=== PATIENT | male | born 1965 | race Caucasian/White ===

== ENCOUNTER 2025-01-29 09:09 | Emergency (ER) | payer OTHER, MEDICAID, SELFPAY ==
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
[2025-01-29 09:08] VITALS: BP 155/95; PULSE 93; RESP 18; TEMP 36.5; O2SAT 98
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
[2025-01-29] MEDS: ACETAMINOPHEN 500 MG TABLET 1000 MG PO (10:15)
[2025-01-29] MEDS: CYCLOBENZAPRINE HCL 5 MG TABLET PO (10:15)
--- OUTSIDE RECORDS SUMMARY | 2025-01-29 10:23 | XMS_ITS ---
Author Organization [facility] Address [address] [place] [id number] Care Team Providers Care Shirt Trimmer Name Role Phone Regis Watts MD Primary Care Provider Regis Jamison Unavailable [phone] REASON FOR VISIT 3 month f/u Social History Sex Assigned At : Social History Observation Description Sex Assigned At Male Encounters Encounter [facility] [address] [address] 01/03/[facility]25 Regis Watts Plan Of Treatment Next Appt Details Provider Name:Keyur Ureña lisa, 03/18/2025 03:30:00 PM, [address] [place] [address], [id number], Progress Notes * Boby CONIT ADOB:[birth year] (59 yo M)Acc No.[id number]:01/03/2025 Progress Notes Patient: Boby LARSON Provider: Forrest Watts MD, FACP, AAHIVS :1965 A ge:59 Y S ex:Male Date:01/03/2025 Address:[address] [place] [address], [address], [id number] Pcp:Regis Watts MD Subjective: * Chief Complaints: * 1 . 3 month f/u. * Active Problem List B20 Human immunodeficien cy virus [HIV] disease Modified On:06/12/2019 B36.9 Superficial mycosis, unspecified E78.4 Other hyperlipidemia Modified On:06/12/2019 J45.30 Mild persistent asth ma, uncomplicated Modified On:12/27/2019 N47.6 Balanoposthitis Modified On:05/12/2018 L71.9 Rosacea Modified On:05/12/2018 M25.519 Pain in joint, shoul pascale region Modified On:05/12/2018 R59.9 Enlarged lymph nodes Modified On:05/12/2018 B00.9 Herpes simplex witho ut mention of complication Modified On:05/12/2018 B36.9 Dermatomycosis, unsp ecified Modified On:05/12/2018 N48.6 Peyronie disease Modified On:12/27/2019W/U Status:confirmed E29.1 Hypogonadism in male Modified On:03/15/2023U Status:confirmed E78.5 Hyperlipidemia, unsp ecified hyperlipidemia type Modified On:12/31/2020U Status:confirmed N40.1 Benign non-nodular p rostatic hyperplasia with lower urinary tract symptoms Modified On:11/26/2022U Status:confirmed E55.9 Vitamin D deficiency Modified On:01/02/2023U Status:confirmed N52.02 Corporo-venous occlu sive erectile dysfunction Modified On:09/21/2023U Status:confirmed F34.1 Dysthymia Modified On:02/28/2024U Status:confirmed R20.2 Paresthesia of both hands Modified On:06/25/2024U Status:confirmed I73.00 Raynaud's disease wi thout gangrene Modified On:06/25/2024U Status:confirmed A49.02 MRSA infection Modified On:07/19/2024U Status:confirmed I10 Essential hypertensi on Modified On:07/19/2024U Status:confirmed G56.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 of hand, unspecified laterality Modified On:10/03/2024/U Status:confirmed E55.9 Hypovitaminosis D Modified On:11/08/2024/U Status:confirmed K65.9 Peritonitis Modified On:11/08/2024/U Status:confirmed E53.8 Vitamin B12 deficien cy Modified On:11/08/2024 Status:confirmed Z87.311 History of fragility fracture Modified On:11/08/2024 Status:confirmed B20 Human immunodeficien cy virus (HIV) disease Modified On:12/19/2024 Status:confirmed B00.9 Herpes simplex Modified On:12/19/2024 Status:confirmed E78.00 Hypercholesterolemia Modified On:12/19/2024 Status:confirmed K21.9 GERD without esophag itis Modified On:12/19/2024 Status:confirmed * Medical History: * Implants: Objective: * Vitals: Assessment: Plan: * Treatment: * Billing Information: * Visit Code: * Procedure Codes: Care Plan Details* * Electronic signature of Kyle Watts MD, FACP on 01/29/2025 at 10:23 AM CDT Sign off status: Pending * Provider: Forrest Watts MD, FACP, AAHIVS Date: 01/03/2025 Generated for Gurdeep fulton/Melissa/Hermanitting on: 01/29/2025 10:23 AM CDT
--- OUTSIDE RECORDS SUMMARY | 2025-01-29 10:24 | XMS_ITS | Clinical Summary ---
Author Organization [facility] Address [address] [place] [address] Care Team Providers Care Caregiver Assisted Living Name Role Phone Regis Watts MD Primary Care Provider Source Comments [facility],non-owned Affiliates and Associated Physician Practices is amultiple site organization consisting of ambulatory clinics and hospital sitesin [place], [place], [place] and [place]. This disclosure is being madepursuant to the Care Everywhere program and may not contain all information available regarding this patient. Last updated 18.[facility] Allergies Active Allergy Reactions Criticality Noted Date Comments Acetaminophen Unknown 07/13/2019 Codeine Unknown 07/13/2019 Ibuprofen Itching,Swelling 11/18/2020 Lips swell and itch Latex Rash Medium 06/28/2023 Meprobamate Unknown 06/21/2018 Misc Natural Products Other 06/28/2023 Nickel Itching,Rash,Unknown Medium 06/28/2023 Nsaids Swelling 02/14/2018 Silicone Itching,Rash Medium 06/28/2023 Medications * Be aware that medications may not be up to date on this document. Alwaysverify current medications with the patient. BIKTARVY 50-200-25 MG Take 1 (one) tablet by mouth once daily 9 Active cetirizine (ZYRTEC) 10 MG tabletIndicatio ns:Urticaria, idiopathic TAKE 2 TABLETS BY MOUTH TWICE DAILY 120 tablet 2 0 Active Additional Information Patient taking differently: 20 mg Oral 2 TIMES DAILY, TAKE 2 TABLETS BY MOUTH TWICE DAILY, Reported on 11/14/2024 desoximetasone (Topicort) 0.25 % ointmentIndicat ions:Allergic contact dermatitis due to other agents Apply to rash on trunk and extremities twice daily. 30 days supply. 100 g 2 3 Active triamcinolone acetonide (Kenalog) 0.1 % ointmentIndicat ions:Allergic contact dermatitis, unspecified trigger Apply to affected area on body BID. 90 day supply 240 g 1 3 Active dupilumab (Dupixent) 300 MG/2ML prefilled penIndications: Other atopic dermatitis Inject 2mL subcutaneous every 14 days 4 mL 11 4 Active escitalopram (Lexapro) 10 MG tablet Take 1 (one) tablet by mouth once daily 4 Active LORazepam (Ativan) 1 MG tablet Take 1 (one) tablet by mouth 3 times daily as needed 4 Active Multiple Vitamin (Daily-Ashley) TABS Take 1 tablet by mouth once daily 4 Active tadalafil (Cialis) 20 MG tablet Take 1 (one) tablet by mouth once daily as needed 4 Active albuterol HFA (Proventil; Ventolin; Proair) 108 (90 Base) MCG/ACT inhaler Inhale 2 (two) puffs by mouth every 4 hours 4 Active doxycycline hyclate (Vibramycin) 100 MG capsule Take 1 (one) capsule by mouth as directed 4 Active atorvastatin (Lipitor) 40 MG tablet Take 1 (one) tablet by mouth once daily 4 Active budesonide-form oterol (Symbicort) 160-4.5 MCG/ACT inhaler Inhale 2 (two) puffs by mouth 2 times daily Active hydrOXYzine HCl (Atarax) 25 MG tablet Take 1 (one) tablet by mouth as directed 3 Active pantoprazole EC (Protonix) 40 MG tablet Take 1 (one) tablet by mouth 2 times daily Active testosterone cypionate (Depo-Testoster one) 200 MG/ML injection Inject 1 mL into muscle as directed 4 Active valACYclovir (Valtrex) 1 GM tablet Take 1 (one) tablet by mouth once daily Active amLODIPine (Norvasc) 10 MG tablet Take 1 (one) tablet by mouth once daily 4 Active gabapentin (Neurontin) 300 MG capsule Take 2 (two) capsules by mouth 3 times daily 540 capsule 3 4 04/24/20 25 Active Active Problems Problem Noted Date Diagnosed Date Suicidal ideation 11/04/2024 Problem related to social environment, unspecifi ed 11/04/2024 Post traumatic stress disorder 11/04/2024 Closed displaced fracture of fifth metatarsal bone of left foot 10/31/2024 Asthma 07/11/2024 Facial cellulitis 07/11/2024 Anxiety 07/11/2024 Elevated troponin 03/15/2024 Chronic rhinitis 03/01/2024 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 03/01/2024 Vitamin D deficiency 03/01/2024 Mild intermittent asthma without complication Induratio penis plastica 03/01/2024 Exercise-induced bronchospasm 03/01/2024 Dysthymia 03/01/2024 Male hypogonadism 03/01/2024 Inguinal hernia without obstruction or gangrene 07/18/2023 Chronic GERD 06/27/2023 Lower urinary tract symptoms due to benign prostatic hyperplasia 06/27/2023 Dermatitis venenata 04/21/2021 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 Hand dermatitis 04/21/2021 Urinary tract infection, site not specified 03/2020 Dermatographism 02/06/2019 Idiopathic urticaria 09/01/2018 Other pruritus 08/08/2018 Asymptomatic human immunodef iciency virus (hiv) infection status 06/16/2018 Balanoposthitis 06/16/2018 Cholecystitis 06/16/2018 Elevated blood-pressure read ing without diagnosis of hypertension 06/16/2018 Giardiasis 06/16/2018 Herpes simplex virus (HSV) infection 06/16/2018 Hyperlipidemia 06/16/2018 Enlarged lymph nodes 06/16/2018 Rosacea 06/16/2018 Seasonal allergic rhinitis 06/16/2018 Pain in joint, shoulder region 06/16/2018 Unspecified sprain of unspec ified shoulder joint, initial encounter 06/16/2018 Testicular hypofunction 06/16/2018 Tinnitus 06/16/2018 Moderate persistent asthma without complication 06/16/2018 Resolved Problems Problem Noted Date Diagnosed Date Resolved Date Asthma with exacerbation 06/16/201807/2024 Encounters Date Type Department Care Team Description 12/19/2024 Telephone [facility] - General Surgery [address] [place] [phone] Viet Mallory DO Surgery Scheduling 12/14/2024 2:49 PM CDT - 12/14/2024 11:59 PM CDT Hospital Encounter [facility] [address] [place] [address] Lala Seaman PA-C Discharge Disposition: Home or Self Care 12/14/2024 2:15 PM CDT Office Visit [facility] - Orthopedics [address] [place] [phone] Lala Seaman PA-C Closed displaced fracture of fifth metatarsal bone of left foot with routine healing, subsequent encounter (Primary Dx) 12/12/2024 Telephone [facility] - General Surgery [address] [place] [phone] Viet Mallory DO Surgery Scheduling (1ST CALL ATTEMPT) 12/11/2024 1:30 PM CDT Office Visit [facility] - General Surgery [address] [phone] Viet Mallory DO Inguinal hernia without obstruction or gangrene, recurrence not specified, unspecified laterality (Primary Dx); Unilateral recurrent inguinal hernia without obstruction or gangrene 12/11/2024 Travel 11/16/2024 1:48 PM CDT - 11/16/2024 11:59 PM CDT Hospital Encounter [facility] [address] [place] [phone] Lala Seaman PA-C Discharge Disposition: Home or Self Care 11/16/2024 1:45 PM CDT Office Visit [facility] - Orthopedics [address] [place] [phone] Lala Seaman PA-C Closed displaced fracture of fifth metatarsal bone of left foot with routine healing, subsequent encounter (Primary Dx); Right foot pain 11/16/2024 Travel 11/15/2024 Orders Only [facility] - Orthopedics [address] [facility] [place] [address] Lala Seaman PA-C Closed displaced fracture of fifth metatarsal bone of left foot, initial encounter 11/13/2024 10:00 AM CDT Office Visit [facility] - General Surgery [address] [facility] [address] [place] [address] Viet Mallory DO Right inguinal pain (Primary Dx) 11/13/2024 Travel 11/07/2024 Travel 11/02/2024 Orders Only [facility] - Orthopedic Surgery [address] [place] [phone] Lala Seaman PA-C Treatment of healed fracture follow-up examination from Last 3 Months Immunizations Immunization Administration Dates Next Due INFLUENZA VACCINE, TRIV. (AF LURIA, FLUZONE TRIVALENT; 6MO+) (IIV3) 07/28/2022,06/25/2021,05/26/2020 INFLUENZA VACCINE 06/28/2024,,06/25/2021,05/26,05/20/2020,06/27/2019,06/27/2019 ,06/15/2018 INFLUENZA VACCINE, QUADR. (F LUZONE; FLULAVAL; FLUARIX; AFLURIA QUADRIVALENT; 6MO+), 0.5 ML (IIV4) 06/15/2018 MENINGOCOCCAL ACWY (MCV4P) VAC IM 05/12/2017,06/2017 SMALLPOX (VACCINIA) VACCINE, LIVE 03/29/2023, Zoster Hzv Vacc Recombinant Inj Im 11/26/2022, Family History Medical History Relation Name Comments Asthma Neg Hx Blindness Neg Hx CVA Neg Hx Cancer - Breast Neg Hx Cancer - Other Neg Hx Cancer - Skin, Melanoma Neg Hx Cancer - Skin, Non Melanoma Neg Hx Cataract Neg Hx Eczema Neg Hx Hemophilia Neg Hx Macular Degeneration Neg Hx Psoriasis Neg Hx Social History Tobacco Use Types Packs/Day Years Used Date Smoking Tobacco: Former Cigarettes Q uit: 09/05/1999 Smokeless Tobacco: Current Tobacco Cessation:Ready to Q uit: Not Asked; Counseling Given: Not Answered Alcohol Use Standard Drinks/Week Comments Yes 0 (1 standard drink = 0.6 oz pur e alcohol) daily -wine AUDIT-C Answer Date Recorded Q1: How often do you have a drink containing alc ohol? Monthly or less 04/12/2024 Q2: How many drinks containi ng alcohol do you have on a typical day when you are drinking? 1 or 2 04/12/2024 Q3: How often do you have si x or more drinks on one occasion? Never 04/12/2024 Sex and Gender Information Value Date Recorded Sex Assigned at Not on file Legal Sex Male 11:07 PM CDT Gender Identity Not on file Sexual Orientation Not on file Last Filed Vital Signs Vital Sign Reading Time Taken Comments Blood Pressure 122/73 12/11/2024 1:27 PM CDT Pulse 63 12/11/2024 1:27 PM CDT Temperature 36.6 C (97.9 F) 12/11/2024 1:27 PM CDT Respiratory Rate 18 12/11/2024 1:27 PM CDT Oxygen Saturation 96% 12/11/2024 1:27 PM CDT Inhaled Oxygen Concentration - - Weight 77.1 kg (170 lb) 12/11/2024 1:27 PM CDT Height 177.8 cm (5' 10) 12/11/2024 1:27 PM CDT Body Mass Index 24.39 12/11/2024 1:27 PM CDT Plan of Treatment Upcoming Encounters Date Type Department Care Team (Late st Contact Info) Description 02/07/2025 4:00 PM CDT Office Visit [facility] Health Neurosciences [address] [facility] [address] [place] [address] Augie Cook MD [facility] [facility] [address] [place] [phone] 02/11/2025 11:34 AM CDT Hospital Encounter [facility] [address] [place] [address] Viet Mallory DO [address] [facility] [address] [place] [address] Surgery General 02/11/2025 11:34 AM CDT - 02/11/2025 1:34 PM CDT Surgery [facility] [address] [place] [address] Viet Mallory, DO [address] [facility] [address] [place] [address] REPAIR RECURRENT INGUINAL HERNIA WITH MESH--RIGHT, REPAIR OF INITIAL INGUINAL HERNIA WITH MESH--LEFT Scheduled Procedures Name Priority Associated Diagnoses Date/Ti me REPAIR INGUINAL HERNIA Diagnosis unknown 02/11/2025 11:34 AM CDT Health Maintenance Due Date Last Done Comments COLOGUARD (AGES 45-75) - COLON CA SCREENING [address] COLONOGRAPHY - COLON CA SCREENING 1965 FIT - COLON CA SCREENING 1965 FLEX SIG - COLON CA SCREENING 1965 DTAP/TDAP/TD VACCINES (1 - Tdap) 1984 HEPATITIS B VACCINE (1 of 3 - 19+ 3-dose series) 1984 PNEUMOCOCCAL VACCINE 50+ (1 of 2 - PCV) 1984 MENINGOCOCCAL GROUPS A/C/Y/W VACCINE (2 - Risk 2-dose series) 07/07/2017 05/12/2017, 04/14/2017 COVID-19 VACCINE ( season) 2024 07/28/2022, 07/10/2021, 11/29/2020, Additional history exists DEPRESSION SCREENING 09/05/2024 COLONOSCOPY - COLON CA SCREENING 07/01/2033 07/01/2023 Colorectal Cancer Screening 07/01/2033 HEPATITIS C SCREENING Completed 02/10/2019 ZOSTER VACCINE Completed 11/26/2022, 10/15/2021 INFLUENZA VACCINE Completed 06/28/2024, , 07/17/2021, Additional history exists HIB VACCINE Aged Out No longer eligi ble based on patient's age to complete this topic HPV VACCINE Aged Out No longer eligi ble based on patient's age to complete this topic MENINGOCOCCAL (Group B) VACCINE SHARED DECISION-MAKING Aged Out No longer eligible based on patient's age to complete this topic Medical Devices Implanted Type Area Hospice Physician Device Identifier Shelf Expiration Date Model / Serial / Lot Tecnis-Iol Implanted:Qty: 1 on 03/29/2024 by Angelo Recinos MD at [facility] Right: [employer] 05/16/2026 [id number] / [id number] / 00 Tecnis 1 Piece Iol Implanted:Qty: 1 on 04/12/2024 by Angelo Recinos MD at [facility] Left: [employer] 11/14/2025 [id number] +23.5D / [id number] / NA Procedures Procedure Name Priority Date/Time Associated Diagnosis Comments XR FOOT LEFT 3VW OR MORE Routine 12/14/2024 3:00 PM CDT Closed displaced fracture of fifth metatarsal bone of left foot with routine healing, subsequent encounter XR FOOT LEFT 3VW OR MORE Routine 11/16/2024 1:56 PM CDT Treatment of healed fracture follow-up examination HEPATITIS C AB W/RFLX TO HCV RNA QN PCR Routine 02/10/2019 9:51 AM CDT Dermatographism from Last 3 Months or Most Recently Relevant to Health Maintenance Results * XR Foot Left 3Vw or More (12/14/2024 3:00 PM CDT) Only the most recent of2 resultswithin the time period is included. Anatomical Region Laterality Modality Ankle / Foot Computed Radiogr aphy 12/14/2024 3:38 PM CDT Impressions 12/14/2024 4:34 PM CDT IMPRESSION: Mildly displaced fracture of the fifth metatarsal shaft with unchanged osseous alignment. Report dictated by Zakia Gavin MD I, Diallo Thornton MD have personally reviewed and interpreted this examination/study. > Interpreting Provider: Diallo Thornton MD on 12/14/2024 4:34 PM Narrative 12/14/2024 4:34 PM CDT PROCEDURE: XR FOOT LEFT 3VW OR MORE, DATE/TIME OF EXAM: 12/14/2024 3:00 PM, LOCATION [facility] INDICATION: S92.352D: Closed displaced fracture of fifth metatarsal bone of left foot with routine healing, subsequent encounter ADDITIONAL CLINICAL INFORMATION: Ordering Provider Reason For Exam: LEFT FOOT PAIN Technologist Note: Additional: COMPARISON: Radiographs from 11/16/2024 FINDINGS: Redemonstrated mildly displaced fifth metatarsal shaft fracture without significant callus formation. Unchanged osseous alignment. Mild adjacent soft tissue swelling, which has decreased. Procedure Note Diallo Thornton MD - 12/14/2024 PROCEDURE: XR FOOT LEFT 3VW OR MORE, DATE/TIME OF EXAM: 12/14/2024 3:00 PM, LOCATION [facility] INDICATION: S92.352D: Closed displaced fracture of fifth metatarsal bone of leftfoot with routine healing, subsequent encounter ADDITIONAL CLINICAL INFORMATION: Ordering Provider Reason For Exam: LEFT FOOT PAIN Technologist Note: Additional: COMPARISON: Radiographs from 11/16/2024 FINDINGS: Redemonstrated mildly displaced fifth metatarsal shaft fracture without significant callus formation. Unchanged osseous alignment. Mild adjacent soft tissue swelling, which has decreased. IMPRESSION: Mildly displaced fracture of the fifth metatarsal shaft with unchanged osseous alignment. Report dictated by Zakia Gavin MD I, Diallo Thornton MD have personally reviewed and interpreted this examination/study. > Interpreting Provider: Diallo Thornton MD on 12/14/2024 4:34 PM [facility] ORDERABLE S Final Result * HEPATITIS C AB W/RFLX TO HCV RNA QN PCR (02/10/2019 9:51 AM CDT) Hepatitis C Antibody NON-REACTI VE NON-REACT [facility] Signal to Cut-Off 0.07 <1.00 [facility] Comment: HCV antibody was non-reactive. There is no laboratory evidence of HCV infection. In most cases, no further action is required. However, if recent HCV exposure is suspected, a test for HCV RNA (test code 97925) is suggested. For additional information please refer to http://education.questdiagnostics.com/faq/NPO19d3 (This link is being provided for informational/ educational purposes only.) REPORT COMMENT: FASTING:NO Test Performed at: [facility] [facility] [address] [place] [phone] ALTAF GUTIÉRREZ DO,MPH Blood BLOOD SPECIMEN / Unknown 02/10/2019 9:51 AM CDT 02/10/2019 9:51 AM CDT Shelli Reese MD LAB - CHEMISTRY ORDERABLES Final Result [facility] [id number] [place] [address] from Last 3 Months or Most Recently Relevant to Health Maintenance [place] [employer] [place] [employer] Care Teams Caregiver Assisted Living Relationship Specialty Start Date End Date Regis Watts MD [address] [place] [phone] PCP - General 02/09/18
--- OUTSIDE RECORDS SUMMARY | 2025-01-29 10:24 | XMS_ITS | Clinical Summary ---
Author Organization [address] Address [facility] [place] [address] Care Team Providers Care Agronomy Instructor Name Role Phone Regis Watts MD Primary Care Provider [phone] Allergies Active Allergy Reactions Criticality Noted Date Comments Latex, Natural Rubber Itching,Rash Medium 06/28/2023 Nsaids (Non-Steroidal Anti-I nflammatory Drug) Angioedema High Medications albuterol HFA (PROVENTIL HFA,VENTOLIN HFA,PROAIR HFA) 90 mcg/actuation inhaler Inhale 2 puffs every 4 (four) hours as needed for shortness of breath or wheezing 3 Active atorvastatin (LIPITOR) 40 mg tablet Take 1 tablet (40 mg total) by mouth nightly Active bictegravir-emt ricitabine-teno fovir (Biktarvy) 50-200-25 mg tablet Take 1 tablet by mouth nightly 9 Active Symbicort 160-4.5 mcg/actuation inhaler Inhale 2 puffs 2 (two) times a day 0 Active gabapentin (NEURONTIN) 300 mg capsule Take 1 capsule (300 mg total) by mouth 3 (three) times a day 3 Active hydrOXYzine (ATARAX) 25 mg tablet Take 1 tablet (25 mg total) by mouth nightly [address] (PROTONIX) 40 mg EC tablet Take 1 tablet (40 mg total) by mouth 2 (two) times a day 3 Active valACYclovir (VALTREX) 1 gram tablet Take 1 tablet (1,000 mg total) by mouth nightly Active escitalopram (LEXAPRO) 10 mg tablet Take 1 tablet (10 mg total) by mouth daily 30 tablet 4 Active amLODIPine (NORVASC) 10 mg tablet Take 1 tablet (10 mg total) by mouth daily 30 tablet 4 Active Active Problems Problem Noted Date Diagnosed Date Facial cellulitis 07/11/2024 Assessment & Plan (07/12/2024 4:48 PM DAIRY STORE MANAGER): Secondary to nasal abscess. CT facial bones w contrast showed a peripherally enhancing collection involving the inferior nasal septum measuring 1.8 x 1.0 cm compatible with phlegmon/abscess with no underlying osseous destruction of the anterior nasal spine. - ENT was consulted s/p I&D at bedside. - S/p IVF and started on IV Unasyn. - Dental and oral hygiene is clean, no signs of dental caries. Micro of the abscess showing: Staph aureus, and enterobacter. Plan: - deescalate Abx to Bactrim - Follow up on Blood cultures. And drainage cx - Pain control: Gabapentin, oxycodone PRN and hydrocodone PRN Assessment & Plan (07/11/2024 1:21 AM DAIRY STORE MANAGER): Secondary to nasal abscess. Here with WBC 11.9, lactate 2.2. CT facial bones w contrast showed a peripherally enhancing collection involving the inferior nasal septum measuring 1.8 x 1.0 cm compatible with phlegmon/abscess with no underlying osseous destruction of the anterior nasal spine. - ENT was consulted s/p I&D at bedside. - S/p IVF and started on IV Unasyn. - Follow up on Blood cultures. - Pain control: Gabapentin, oxycodone PRN and hydrocodone PRN Asthma 07/11/2024 Assessment & Plan (07/11/2024 7:10 AM DAIRY STORE MANAGER): Continue home symbicort and PRN albuterol. Assessment & Plan (07/11/2024 1:22 AM DAIRY STORE MANAGER): Continue home symbicort and PRN albuterol. Anxiety 07/11/2024 Assessment & Plan (07/11/2024 7:10 AM DAIRY STORE MANAGER): Continue home lexapro Assessment & Plan (07/11/2024 1:22 AM DAIRY STORE MANAGER): Continue home lexapro Elevated troponin 03/15/2024 Inguinal hernia without obstruction or gangrene 07/18/2023 Gastroesophageal reflux disease 06/27/2023 Assessment & Plan (07/11/2024 1:19 AM DAIRY STORE MANAGER): Continue home pantoprazole Hypercholesterolemia 06/27/2023 Lower urinary tract symptoms due to benign prostatic hyperplasia 06/27/2023 HIV infection 06/16/2018 Assessment & Plan (07/12/2024 4:47 PM DAIRY STORE MANAGER): Continue home biktarvy Continue Valacyclovir for ppx. CD4 : 615 HIV RNA: 126 Assessment & Plan (07/11/2024 1:19 AM DAIRY STORE MANAGER): Continue home biktarvy Continue Valacyclovir for ppx. - Follow up home HIV RNA and CD4 count Hyperlipidemia 06/16/2018 Assessment & Plan (07/11/2024 7:09 AM DAIRY STORE MANAGER): C/w home atorvastatin Assessment & Plan (07/11/2024 1:20 AM DAIRY STORE MANAGER): Continue home atorvastatin. Seasonal allergic rhinitis 06/16/2018 Rosacea 07/28/2016 Irritant dermatitis 06/17/2016 Eczema 06/17/2016 Arthralgia of shoulder 12/19/2013 Surgical History Surgery Date Site/Laterality Comments CERVICAL FUSION 09/05/2004 - 09/04/2005 PALATE / UVULA BIOPSY / EXCISION 09/05/1988 - 09/04/1989 TONSILLECTOMY 09/05/1988 - 09/04/1989 COLONOSCOPY 07/01/2023 Medical History Medical History Date Comments HIV (human immunodeficiency virus infection) (HC C) HSV (herpes simplex virus) anogenital infection Hypercholesteremia GERD (gastroesophageal reflux disease) Asthma Family History Medical History Relation Name Comments Diabetes Father Family history of diabetes mellitus - (Added by TW Conv) Arthritis Mother Family history of arthritis - (Added by TW Conv) Heart disease Mother Family history of cardiac disorder - (Added by TW Conv) Hypertension Mother Family history of hypertension - (Added by TW Conv) Anesthesia problems Neg Hx Relation Name Status Comments Father Mother Social History Tobacco Use Types Packs/Day Years Used Date Smoking Tobacco: Never Smokeless Tobacco: Never Tobacco Cessation:Counseling Given: Not Answered Alcohol Use Standard Drinks/Week Comments Yes 0 (1 standard drink = 0.6 oz pur e alcohol) AUDIT-C Answer Date Recorded Q1: How often do you have a drink containing alc ohol? 2-3 times a week 07/18/2023 Q2: How many drinks containi ng alcohol do you have on a typical day when you are drinking? 1 or 2 07/18/2023 Q3: How often do you have si x or more drinks on one occasion? Less than monthly 07/18/2023 Personal Safety Answer Date Recorded Have you ever been in or are you currently in a harmful physical or emotional relationship or is someone making you feel afraid or unsafe? Denies 07/10/2024 Sex and Gender Information Value Date Recorded Sex Assigned at Not on file Legal Sex Male 7:10 AM DAIRY STORE MANAGER Gender Identity Not on file Sexual Orientation Not on file Obstetrics History Last Filed Vital Signs Vital Sign Reading Time Taken Comments Blood Pressure 150/72 07/13/2024 7:34 AM DAIRY STORE MANAGER Pulse 75 07/13/2024 7:34 AM DAIRY STORE MANAGER Temperature 36.6 C (97.9 F) 07/13/2024 7:34 AM DAIRY STORE MANAGER Respiratory Rate 18 07/13/2024 7:34 AM DAIRY STORE MANAGER Oxygen Saturation 98% 07/13/2024 7:34 AM DAIRY STORE MANAGER Inhaled Oxygen Concentration - - Weight 70.3 kg (155 lb) 07/11/2024 3:25 AM DAIRY STORE MANAGER Height 177.8 cm (5' 10) 07/11/2024 3:25 AM DAIRY STORE MANAGER Body Mass Index 22.24 07/11/2024 3:25 AM DAIRY STORE MANAGER Plan of Treatment Health Maintenance Due Date Last Done Comments Depression Screening 1965 HLA B 5701 Typing 1965 Prostate Cancer Screening-PSA 1965 T Spot (quantiferon gold) 1965 DTaP/Tdap/Td Vaccine (1 - Tdap) 1976 HIV+ Chlamydia and Gonorrhea Screening (Rectal) 1976 HIV+ Chlamydia and Gonorrhea Screening (Throat) 1978 RPR Screening 1978 G6PD 1983 Hepatitis A Screening 1983 Hepatitis B Screening 1983 Regular Well Visit/Exam 18-64 1983 Hepatitis A Vaccines (1 of 2 - Risk 2-dose series) 1984 Hepatitis B Vaccines (1 of 3 - 19+ 3-dose series) 1984 Pneumococcal vaccine <65 (1 of 2 - PCV) 1984 Hepatitis C Screening 04/12/2015 04/12/2014, 014 Osteoporosis Screening-Bone Density Scan 2015 Covid-19 Vaccine ( - 2023-2 5 season) 2024 07/10/2021, 11/29/2020, 11/01/2020 HIV + Chlamydia and Gonorrhe a Screening (Urine) 09/01/2024 09/01/2023 Proteinuria screening Urinalysis (UA) 09/01/2024 09/01/2023, 09/01/2023 Lipid Panel 03/14/2025 03/14/2024, 07, 12/23/2015, Additional history exists Influenza Vaccine (Season Ended) 2025 07/28/2022, 07/17/2021, 06/25/2021, Additional history exists Hemoglobin A1C 07/11/2025 07/11/2024 Colon Cancer Screening-Colonoscopy 07/01/20332022 Zoster Vaccine Completed 11/26/2022, 10/15/2021 Medical Devices Implanted Type Area Pharmacology Associate Device Identifier Shelf Expiration Date Model / Serial / Lot [employer] R Bard Mesh Surgical Mid Anatomical Synthetic Patch 3dmax 4x6in [id number] - [id number] Implanted:Qty: 1 on 07/22/2023 by Sania Melgoza MD at [facility] Mesh Right: Abdomen [employer] Bard [id number] 12/01/2027 [id number] / / Procedures Procedure Name Priority Date/Time Associated Diagnosis Comments HEMOGLOBIN A1C Routine 07/11/2024 8:52 PM DAIRY STORE MANAGER LIPID PANEL STAT 03/14/2024 9:29 AM CDT URINALYSIS, MICROSCOPIC ONLY STAT 09/01/2023 1:04 AM DAIRY STORE MANAGER COLONOSCOPY 07/01/2023 10:58 AM CDT SERUM HEPATITIS C AB Routine 04/12/2014 3:12 PM CDT from Last 3 Months or Most Recently Relevant to Health Maintenance Results * (ABNORMAL) Hemoglobin A1c (07/11/2024 8:52 PM DAIRY STORE MANAGER) Hgb A1C 6.1(H) 4.0 - 5.6 % Estimated Average Glucose 128 mg/dL RADHA MCDANIELS Comment: The ADA recommends reporting an estimated Average Glucose (eAG) with all Hemoglobin A1c results using the equation derived from a study of 507 normal and diabetic adults. Minority populations were underrepresented and children were not included. (Diabetes Care 2020; 43(S1): S66-S76). The eAG is not equivalent to a fasting glucose. Blood 07/11/2024 8:52 PM DAIRY STORE MANAGER 07/11/2024 9:18 PM DAIRY STORE MANAGER us Hilary Medina MD LAB BLOOD ORDERABLES Final Res ult RADHA MCDANIELS [facility] Department [place] [address] * (ABNORMAL) Lipid panel (03/14/2024 9:29 AM CDT) Cholesterol 92 30 - 199 mg/dL Comment: Interpretive Data Ages < or = 19 years Acceptable: <170 mg/dL Borderline high: 170-199 mg/dL High: >or= 200 mg/dL Ages > or = 20 years Desirable: <200 mg/dL Borderline high: 200-239 mg/dL High: >or= 240 mg/dL Literature References: 1. Expert Panel on Integrated Guidelines for Cardiovascular Health and Risk Reduction in Children and Adolescents. Pediatrics 2011;128:S213 2. NCEP Expert Panel. Circulation 2004;110:227 Current Interpretive Data was last revised on 2018. Triglycerides 68 <=149 mg/dL RADHA MCDANIELS Comment: Interpretive Data Ages < or = 9 years Acceptable: <75 mg/dL Borderline high: 75-99 mg/dL High: >or= 100 mg/dL Ages 10 to 20 years Acceptable: <90 mg/dL Borderline high: 90-129 mg/dL High: >or= 130 mg/dL Ages > or = 20 years Desirable: <150 mg/dL Borderline high: 150-199 mg/dL High: 200-499 mg/dL Very high: >or= 499 mg/dL Literature References: 1. Expert Panel on Integrated Guidelines for Cardiovascular Health and Risk Reduction in Children and Adolescents. Pediatrics 2011;128:S213 2. NCEP Expert Panel. Circulation 2004;110:227 Current Interpretive Data was last revised on 2018. HDL 32(L) >=40 mg/dL RADHA [facility] Comment: Interpretive Data Ages < or = 19 years Acceptable: >45 mg/dL Borderline low: 40-45 mg/dL Low: <40 mg/dL Ages > or = 20 years Desirable: >or= 60 mg/dL Low: <40 mg/dL Literature References: 1. Expert Panel on Integrated Guidelines for Cardiovascular Health and Risk Reduction in Children and Adolescents. Pediatrics 2011;128:S213 2. NCEP Expert Panel. Circulation 2004;110:227 Current Interpretive Data was last revised on 2018. LDL, calculated 46 <=129 mg/dL RADHA [facility] Comment: Interpretive Data Ages < or = 19 years Acceptable: <110 mg/dL Borderline high: 110-129 mg/dL High: >or= 130 mg/dL Ages > or = 20 years Optimal: <100 mg/dL Near optimal: 100-129 mg/dL Borderline high: 130-159 mg/dL High: >160 mg/dL Literature References: 1. Expert Panel on Integrated Guidelines for Cardiovascular Health and Risk Reduction in Children and Adolescents. Pediatrics 2011;128:S213 2. NCEP Expert Panel. Circulation 2004;110:227 Current Interpretive Data was last revised on 2018. Non-HDL Cholesterol 60 mg/dL RADHA MCDANIELS Comment: Interpretive Data Ages < or = 19 years Acceptable: <120 mg/dL Borderline high: 120-144 mg/dL High: >145 mg/dL Ages > or = 20 years When triglycerides are >200 mg/dL, Non-HDL cholesterol is a secondary target of therapy with treatment goals that are 30 mg/dL greater than the LDL cholesterol target. Literature References: 1. Expert Panel on Integrated Guidelines for Cardiovascular Health and Risk Reduction in Children and Adolescents. Pediatrics 2011;128:S213 2. NCEP Expert Panel. Circulation 2004;110:227 Current Interpretive Data was last revised on 2018. Chol/HDL ratio 3 [facility] Blood 03/14/2024 9:29 AM CDT 03/14/2024 9:50 AM CDT Narrative [facility] - 03/14/2024 3:39 PM CDT This lipid panel was automatically ordered due to a significant change in Troponin. The dietary status of the patient at the collection time should be correlated with the lipid results. us Catrachito Plata MD LAB BLOOD ORDERABLES Final Result Performing Organization Address City/[facility] Co de Phone Number [facility] [place] [address] * (ABNORMAL) Urinalysis, microscopic only (09/01/2023 1:04 AM DAIRY STORE MANAGER) WBC, ur 0-5 0 - 5 /HPF [facility] RBC, ur 3-5(A) 0 - 2 /HPF [facility] Epithelial cells, squamous, ur 1-5 0 - 5 /HPF [facility] Mucous, ur Present(A) [facility] Hyaline casts, ur 1-5 0 - 10 /LPF [facility] Culture Reflex Comment Reflex conditions for urine culture (WBC >10) not met. [facility] Urine 09/01/2023 1:04 AM DAIRY STORE MANAGER 09/01/2023 1:10 AM DAIRY STORE MANAGER us Brant Hoyt MD PhD LAB URINE ORDERABLES Fi nal Result Performing Organization Address [facility]/ZIP Co de Phone Number [facility] Department [place] [address] * COLONOSCOPY (07/01/2023 10:58 AM CDT) Anatomical Region Laterality Modality Other Narrative Procedure Note Jessica Heaton MD - 07/01/2023 10:58 AM CDT [facility] ENDOSCOPY [facility] Patient Name: Boby Abraham Procedure Date: 07/01/2023 10:58AM Date of : 1965 Admit Type: Outpatient Age: 58 Gender: Male Attending MD: Jessica Heaton MD Room: [facility] ENDOSCOPY ROOM 4 Note Status: Finalized Procedure: Colonoscopy Indications: Screening for colorectal malignant neoplasm. Last colonsocopy 5 years ago - possible polyp, norecords available. Referring MD: Providers: Jessica Heaton MD Medicines: Propofol per Anesthesia Complications: No immediate complications. Estimated Blood Loss: Estimated blood loss was minimal. Procedure: Pre-Anesthesia Assessment: - Prior to the procedure, a History and Physicalwas performed, and patient medications and allergieswere reviewed. The patient's tolerance of previous anesthesia was also reviewed. The risks andbenefits of the procedure and the sedation options and risks were discussed with the patient. All questions were answered, and informed consent was obtained. Prior Anticoagulants: The patient has taken noanticoagulant or antiplatelet agents. ASA Grade Assessment: II -A patient with mild systemic disease. After reviewing the risks and benefits, the patient was deemed in satisfactory condition to undergo the procedure. - Immediately prior to administration ofmedications, the patient was re-assessed for adequacy to receive sedatives. - The risks and benefits of the procedure and the sedation options and risks were discussed with the patient. All questions were answered and informed consent was obtained. The benefits, risks and alternatives of theprocedure and sedation were discussed and informed consentwas obtained. All questions were answered. Please referto the signed informed consent document in the medical record. The scope was passed under direct vision.The [id number] endoscope was introduced through the anus and advanced to the terminal ileum, with identification of the appendiceal orifice and IC valve. The colonoscopy was performed without difficulty. The patient tolerated the procedurewell. The quality of the bowel preparation was evaluated using the BBPS ([place] Bowel Preparation Scale)with scores of: Right Colon = 3, Transverse Colon = 3and Left Colon = 3 (entire mucosa seen well with no residual staining, small fragments of stool oropaque liquid). The total BBPS score equals 9. The bowel preparation used was GoLYTELY via split dose instruction. The quality of the bowel preparationwas good. Findings: The perianal and digital rectal examinations were normal. The terminal ileum appeared normal. A 3 mm polyp was found in the rectum. The polyp was sessile. Thepolyp was removed with a cold biopsy forceps. Resection and retrieval were complete. The exam was otherwise without abnormality on direct and retroflexion views. Impression: - The examined portion of the ileum was normal. - One 3 mm polyp in the rectum, removed with a cold biopsy forceps. Resected and retrieved. - The examination was otherwise normal on directand retroflexion views. Recommendation: - Await pathology results. - Repeat colonoscopy for surveillance based on pathology results. - Discharge patient to home (ambulatory). - Resume regular diet. Electronically signed by Jessica Heaton MD Jessica Heaton MD 07/01/2023 11:42:54 AM Number of Addenda: 0 Note Initiated On: 07/01/2023 10:58 AM Recognized by the [place] [employer] for promoting quality in endoscopy Jessica Heaton MD ENDOSCOPY PROCEDURES Fi nal Result * Serum Hepatitis C ab (04/12/2014 3:12 PM CDT) HCV ab, ratio 0.1 0.0 - 0.9 s/co ratio HISTORICAL RESULTS Comment: Negative: < 0.8 Indeterminate 0.8 - 0.9 Positive: > 0.9 . In order to reduce the incidence of a false positive result, the CDC recommends that all s/co ratios between 1.0 and 10.9 be confirmed by a more specific supplemental or PCR testing. [facility] offers HCV Ab w/Reflex to Verification test #[id number]. Serum 04/12/2014 3:12 PM CDT us Historical Provider LAB BLOOD ORDERABLES Keesha galvan Result Performing Organization Address City/State/[facility] Co de Phone Number HISTORICAL RESULTS from Last 3 Months or Most Recently Relevant to Health Maintenance Insurance [employer] [facility] ACCESS CHOICE Advance Directives For more information, please contact: [phone] * Full Code (Latest Code Status on File) Date Activated Date Inactivated Comments 07/11/2024 3:16 AM 07/13/2024 6:05 PM * Full Code Date Activated Date Inactivated Comments 03/15/2024 5:01 AM 03/15/2024 5:47 PM * Full Code Date Activated Date Inactivated Comments 07/01/2023 11:07 AM 07/01/2023 4:43 PM Care Teams Agronomy Instructor Relationship Specialty Start Date End Date Regis Watts MD [address] [place] [address] PCP - General 05/26/17
--- OUTSIDE RECORDS SUMMARY | 2025-01-29 10:24 | XMS_ITS | Patient Health Record ---
Author Organization [facility] Address [address] [place] [address] Care Team Providers Care Steep Tender Name Role Phone Regis Watts MD Primary Care Provider Regis Jamison Unavailable [phone] Sabrina Barnett Unavailable [phone] Keyur Lawler Unavailable [phone] Kemar, Dr. Tovar Unavailable [phone] Allergies Allergen (clinical drug ingredient) Drug/Non Drug Allergy documented on EMR Reaction Allergy Type Onset Date Status acetaminophen ACETAMINOPHEN Unknown Drug Allergy Active CODEINE PHOSPHATE Unknown Drug Allergy Active meprobamate MEPROBAMATE Unknown Drug Allergy Act antonia nickel Nickel Unknown Allergy Active Results Component Value Reference Range Notes CD4+Lymphs Reviewed date:12/20/2024 04:35:55 PM Interpretation: Performing Lab:[facility], [facility] [facility], Phone - [phone], Director - Elio Notes/Report: Clinical Information:SRC:RE SRC:TH Absolute CD 4 [place] [phone] /uL % CD 4 Pos. Lymph. 36.0 30.8-58.5 % CBC With Differential/Platel et Reviewed date:12/20/2024 06:22:10 AM Interpretation: Performing Lab:[facility], [facility] [address] [facility], [place], Phone - [phone], Director - Elio Notes/Report: Clinical Information:SRC:RE SRC:TH WBC 6.4 3.4-10.8 x10E3/uL RBC 4.30 4.14-5.80 x10E6/uL Hemoglobin 12.8 13.0-17.7 g/dL Hematocrit 39.5 37.5-51.0 % MCV 92 79-97 fL MCH 29.8 26.6-33.0 pg MCHC 32.4 31.5-35.7 g/dL RDW 13.5 11.6-15.4 % Platelets 327 150-450 x10E3/uL Neutrophils 45 Not Estab. % Lymphs 44 Not Estab. % Monocytes 8 Not Estab. % Eos 1 Not Estab. % Basos 1 Not Estab. % Immature Cells REAL ESTATE SALES SUPERVISOR Neutrophils (Absolute) 2.9 1.4-7.0 x10E3/uL Lymphs (Absolute) 2.9 0.7-3.1 x10E3/uL Monocytes(Absolute) 0.5 0.1-0.9 x10E3/uL Eos (Absolute) 0.0 0.0-0.4 x10E3/uL Baso (Absolute) 0.0 0.0-0.2 x10E3/uL Immature Granulocytes 1 Not Estab. % Immature Grans (Abs) 0.0 0.0-0.1 x10E3/uL NRBC REAL ESTATE SALES SUPERVISOR Hematology Comments: REAL ESTATE SALES SUPERVISOR Lipid Panel Reviewed date:12/20/2024 08:07:56 AM Interpretation: Performing Lab:[facility] [place] [address] [facility], Phone - [phone], Director - Elio Notes/Report: Clinical Information:SRC:RE SRC:TH Cholesterol, Total 146 100-199 mg/dL Triglycerides 98 0-149 mg/dL HDL Cholesterol 33 >39 mg/dL VLDL Cholesterol Jacoby 18 5-40 mg/dL LDL Chol Calc ([facility]) 95 0-99 mg/dL LDL Calc Comment: REAL ESTATE SALES SUPERVISOR Comp. Metabolic Panel (14) Reviewed date:12/20/2024 08:07:56 AM Interpretation: Performing Lab:[facility] [place], [address] [facility], Phone - [phone], Director - Elio Notes/Report: Clinical Information:SRC:RE SRC:TH Glucose 104 70-99 mg/dL BUN 11 6-24 mg/dL Creatinine 0.78 0.76-1.27 mg/dL eGFR 103 >59 mL/min/1.73 BUN/Creatinine Ratio 14 9-20 Sodium 140 134-144 mmol/L Potassium 4.1 3.5-5.2 mmol/L Chloride 101 96-106 mmol/L Carbon Dioxide, Total 24 20-29 mmol/L Calcium 9.3 8.7-10.2 mg/dL Protein, Total 7.2 6.0-8.5 g/dL Albumin 4.5 3.8-4.9 g/dL Globulin, Total 2.7 1.5-4.5 g/dL Bilirubin, Total 0.6 0.0-1.2 mg/dL Alkaline Phosphatase 97 44-121 IU/L AST (SGOT) 41 0-40 IU/L ALT (SGPT) 53 0-44 IU/L RNA, Real Time PCR (Non-Grap h) Reviewed date:12/21/2024 05:30:20 PM Interpretation: Performing Lab:[facility] [place], [facility], [place], Phone - [phone], Director - Luci Notes/Report: Clinical Information:SRC:RE SRC:TH HIV-1 RNA by PCR <20 HIV-1 RNA not detected . The reportable range for this assay is 20 to 10,000,000 copies HIV-1 RNA/mL. . log10 HIV-1 RNA TNP Unable to calculate result since non-numeric result obtained for component test. GSTRO - Diarrheal Disease (H TRx) Reviewed date:12/20/2024 09:47:41 AM Interpretation: Performing Lab: Notes/Report: Real-Time polymerase chain reaction (TaqMan qPCR) was utilized for detection for all tested organisms and resistance genes. Initiation of antimicrobial therapy prior to testing may affect results and can lead to the detection of non-living microorganisms. Detection of microbes must be correlated with current/recent antibiotic usage and patient signs and symptoms. Microbial sensitivity testing is not performed at this lab. Nuclear Control Room Operator to CFU/mL equivalent thresholds were established based on studies using known CFU/mL urine specimens performed at [facility] in [place], [place]. Testing performed by [facility] ([address], [place] [address]; CLIA# [id number]; Front Desk Officer Jenn Reyes, PhD, [facility])). This test was developed, and its performance characteristics determined by [facility]. It has not been cleared or approved by the FDA. However, such approval/clearance is not required, as the laboratory is regulated and qualified under CLIA to perform high-complexity testing. This test is used for clinical purposes and should not be regarded as investigational or for research. *Approximate copies of target nucleic acid per &micro;L (Low: <2,500 copies/&micro;L, Moderate: 2,500-50,000 copies/&micro;L, High: >50,000 copies/&micro;L) National Infectious Disease Consensus Data Potentially effective oral antibiotics, based on presence of detected microbes, antimicrobial resistance genes, and national antimicrobial sensitivity data (see Summary Antibiogram). Yersinia enterocolitica 0.000 23.000 - 31.853 ppm Yersinia enterocolitica Not Detected 23.000 - 31.853 ppm Vibrio cholerae, parahaemolyticus, vulnificus 0.000 23.000 - 31.296 ppm Vibrio cholerae, parahaemolyticus, vulnificus Not Detected 23.000 - 31.296 ppm Salmonella 0.000 23.000 - 30.907 ppm Salmonella Not Detected 23.000 - 30.907 ppm Rotavirus A 0.000 23.000 - 33.204 ppm Rotavirus A Not Detected 23.000 - 33.204 ppm Norovirus (Genogroup 1, 2) (g_Norovirus_G1_3) 0.000 23.000 - 30.935 ppm Norovirus (Genogroup 1, 2) (g_Norovirus_G1_3) Not Detected 23.000 - 30.935 ppm Enteroinvasive E. coli (EIEC) / Shigella spp. 0.000 19.691 - 24.689 ppm Enteroinvasive E. coli (EIEC) / Shigella spp. Not Detected 19.691 - 24.689 ppm Clostridioides difficile (toxins A, B) 0.000 19.691 - 24.689 ppm Clostridioides difficile (toxins A, B) Not Detected 19.691 - 24.689 ppm Campylobacter coli, jejuni, upsaliensis 0.000 23.000 - 31.921 ppm Campylobacter coli, jejuni, upsaliensis Not Detected 23.000 - 31.921 ppm Shiga toxin-producing E. coli (STEC) 0.000 19.691 - 24.689 ppm Shiga toxin-producing E. coli (STEC) Not Detected 19.691 - 24.689 ppm Shiga toxin- producing E. coli O157 (STEC O157) 0.000 19.691 - 24.689 ppm Shiga toxin- producing E. coli O157 (STEC O157) Not Detected 19.691 - 24.689 ppm Clostridium perfringens 0.000 19.691 - 24.689 ppm Clostridium perfringens Not Detected 19.691 - 24.689 ppm Cryptosporidium 0.000 23.000 - 32.185 ppm Cryptosporidium Not Detected 23.000 - 32.185 ppm Cyclospora cayetanensis 0.000 23.000 - 31.181 ppm Cyclospora cayetanensis Not Detected 23.000 - 31.181 ppm Dientamoeba fragilis 0.000 23.000 - 32 .927 ppm Dientamoeba fragilis Not Detected 23.000 - 32 .927 ppm Entamoeba histolytica 0.000 23.000 - 3 1.749 ppm Entamoeba histolytica Not Detected 23.000 - 3 1.749 ppm Giardia intestinalis 0.000 23.000 - 32 .603 ppm Giardia intestinalis Not Detected 23.000 - 32 .603 ppm Microsporidium (Enterocytozoon bieneusi, Encephalitozoon intestinalis) 0.000 23.000 - 32.115 ppm Microsporidium (Enterocytozoon bieneusi, Encephalitozoon intestinalis) Not Detected 23.000 - 32.115 ppm Testosterone, Serum Reviewed date:12/20/2024 08:07:56 AM Interpretation: Performing Lab:[facility] [employer] [facility], Phone - [phone], Director - [facility] Notes/Report: Clinical Information:SRC:RE SRC:TH Testosterone 265 264-916 ng/dL Adult male reference interval is based on a population of healthy nonobese males (BMI <30) between 19 and 39 years old. Asher et.al. JCEM 2017,102;7750-4983. PMID: 27377237. Comp. Metabolic Panel (14) Reviewed date:03/01/2024 06:25:09 AM Interpretation: Performing Lab:[facility] [employer], [place], Phone - [phone], Director - [facility] Notes/Report: Clinical Information:SRC:UC SRC:TH Glucose 97 70-99 mg/dL BUN 14 6-24 mg/dL Creatinine 0.86 0.76-1.27 mg/dL eGFR 100 >59 mL/min/1.73 BUN/Creatinine Ratio 16 9-20 Sodium 137 134-144 mmol/L Potassium 4.8 3.5-5.2 mmol/L Chloride 101 96-106 mmol/L Carbon Dioxide, Total 25 20-29 mmol/L Calcium 9.3 8.7-10.2 mg/dL Protein, Total 7.1 6.0-8.5 g/dL Albumin 4.3 3.8-4.9 g/dL Globulin, Total 2.8 1.5-4.5 g/dL Bilirubin, Total 0.3 0.0-1.2 mg/dL Alkaline Phosphatase 117 44-121 IU/L AST (SGOT) 16 0-40 IU/L ALT (SGPT) 18 0-44 IU/L Lipid Panel Reviewed date:03/01/2024 06:25:09 AM Interpretation: Performing Lab:[facility] [place], [address] [facility], Phone - [phone], Director - Elio Notes/Report: Clinical Information:SRC:UC SRC:TH Cholesterol, Total 154 100-199 mg/dL Triglycerides 130 0-149 mg/dL HDL Cholesterol 51 >39 mg/dL VLDL Cholesterol Jacoby 23 5-40 mg/dL LDL Chol Calc ([facility]) 80 0-99 mg/dL LDL Calc Comment: REAL ESTATE SALES SUPERVISOR Ct/GC SUSAN, Pharyngeal Reviewed date:03/01/2024 09:34:08 PM Interpretation: Performing Lab:[facility], [address] [place] [address], Phone - [phone], Director - Jeremías Notes/Report: Clinical Information:SRC: SRC:TH C. trachomatis, SUSAN, Pharyn Negative Negative N. gonorrhoeae, SUSAN, Pharyn Negative Negative Ct/GC SUSAN, Rectal Reviewed date:03/02/2024 08:25:19 AM Interpretation: Performing Lab:[facility], Phone - [phone], Director - Jeremías Notes/Report: Clinical Information:SRC: SRC:TH C. trachomatis, SUSAN, Rectal Negative Negative N. gonorrhoeae, SUSAN, Rectal Negative Negative Chlamydia/GC Amplification Reviewed date:03/01/2024 09:34:16 PM Interpretation: Performing Lab:[facility] [place], [address] [place] [address] [place], Phone - [phone], Director - Jeremías Notes/Report: Clinical Information:SRC: SRC: Chlamydia trachomatis, SUSAN Negative Negative Neisseria gonorrhoeae, SUSAN Negative Negative HCV Antibody Reviewed date:03/01/2024 06:25:08 AM Interpretation: Performing Lab:[facility] [place], [employer] [facility], Phone - [phone], Director - Elio Notes/Report: Clinical Information:SRC: SRC: Hep C Virus Ab Non Reactive Non Reactive HCV antibody alone does not differentiate between previously resolved infection and active infection. Equivocal and Reactive HCV antibody results should be followed up with an HCV RNA test to support the diagnosis of active HCV infection. Vitamin D, 25-Hydroxy Reviewed date:03/01/2024 07:43:35 AM Interpretation: Performing Lab:[facility] [place], [address] [place], [place] [address]ox [facility], Phone - [phone], Director - Elio Notes/Report: Clinical Information:SRC: SRC: Vitamin D, 25-Hydroxy 16.9 30.0-100.0 ng/mL Vitamin D deficiency has been defined by the [place] of [employer] and an Endocrine Society practice guideline as a level of serum 25-OH vitamin D less than 20 ng/mL (1,2). The Endocrine Society went on to further define vitamin D insufficiency as a level between 21 and 29 ng/mL (2). 1. IOM ([place] of [employer]). 2010. Dietary reference intakes for calcium and D. [place]: The National Academies Press. 2. Anitra MF, Jay NC, Paul KWOK, et al. Evaluation, treatment, and prevention of vitamin D deficiency: an Endocrine Society clinical practice guideline. JCEM. 2010; 96(7):1911-30. PSA - Prostate-Specific Ag, Serum Reviewed date:03/01/2024 06:25:08 AM Interpretation: Performing Lab:[facility] [place], [employer] [facility], Phone - [phone], Director - Elio Notes/Report: Clinical Information:SRC: SRC:TH Prostate Specific Ag 1.1 0.0-4.0 ng/mL Nisa ECLIA methodology. . According to the [place] [employer], Serum PSA should decrease and remain at undetectable levels after radical prostatectomy. The AUA defines biochemical recurrence as an initial PSA value 0.2 ng/mL or greater followed by a subsequent confirmatory PSA value 0.2 ng/mL or greater. Values obtained with different assay methods or kits cannot be used interchangeably. Results cannot be interpreted as absolute evidence of the presence or absence of malignant disease. Anal (Rectal) Cytology, Liqu id-Based Preparation Reviewed date:03/06/2024 11:54:26 AM Interpretation: Performing Lab:[facility] [place], [address] [place] [address], Phone - [phone], Director - Jeremías Notes/Report: Clinical Information:RECD IN [facility] [id number] Source: Comment ANAL Clinician provided ICD10: Comment B20 Z11.3 Z11.59 Z01.89 Z72.89 DIAGNOSIS: Comment ANAL EPITHELIAL CELL ABNORMALITY. ATYPICAL SQUAMOUS CELLS OF UNDETERMINED SIGNIFICANCE (ASC-US) (ANAL). THE TRANSFORMATION ZONE IS NOT PRESENT. Pathologist provided ICD10: Comment R85.610 Signed out by: Comment Sintia Soriano MD, Pathologist Performed by: Brock hartman, Food Service Utility Worker (ASCP) Hep A Ab, Total Reviewed date:03/01/2024 06:25:08 AM Interpretation: Performing Lab:[facility] [place] [address] [facility], Phone - [phone], Director - Elio Notes/Report: Clinical Information:SRC: SRC:TH Hep A Ab, Total Positive Negative Comment: The HAV total antibody assay detects both IgG and IgM but does not differentiate between them. A negative result suggests susceptibility to infection. A positive result could be due to vaccination, previously resolved infection or active infection. Testing for HAV IgM should be performed if active HAV infection is suspected. [facility] offers profiles that will automatically reflex positive HAV total antibody results to IgM (e.g., panel #[id number] HAV Antibody w/ Rfx). HBsAg Screen Reviewed date:03/01/2024 06:25:08 AM Interpretation: Performing Lab:[facility] [place], [address] [facility], Phone - [phone], Director - [facility] Notes/Report: Clinical Information:SRC: SRC: HBsAg Screen Negative Negative Hep B Surface Ab Reviewed date:03/01/2024 06:25:08 AM Interpretation: Performing Lab:[facility] [place], [address] [place] [address], Phone - [phone], Director - [facility] Notes/Report: Clinical Information:SRC: SRC: Hep B Surface Ab, Qual Reactive Non Reactive: Inconsistent with immunity, less than 10 mIU/mL Reactive: Consistent with immunity, greater than 9.9 mIU/mL RPR Reviewed date:03/01/2024 06:25:08 AM Interpretation: Performing Lab:[facility] [address], Phone - [phone], Director - [facility] Notes/Report: Clinical Information:SRC: SRC: RPR Non Reactive Non Reactive CBC With Differential/Platel et Reviewed date:02/29/2024 10:44:59 AM Interpretation: Performing Lab:[facility] [address], Phone - [phone], Director - [facility] Notes/Report: Clinical Information:SRC: SRC: WBC 7.3 3.4-10.8 x10E3/uL RBC 4.84 4.14-5.80 x10E6/uL Hemoglobin 14.5 13.0-17.7 g/dL Hematocrit 43.4 37.5-51.0 % MCV 90 79-97 fL MCH 30.0 26.6-33.0 pg MCHC 33.4 31.5-35.7 g/dL RDW 13.3 11.6-15.4 % Platelets 321 150-450 x10E3/uL Neutrophils 61 Not Estab. % Lymphs 31 Not Estab. % Monocytes 7 Not Estab. % Eos 1 Not Estab. % Basos 0 Not Estab. % Immature Cells REAL ESTATE SALES SUPERVISOR Neutrophils (Absolute) 4.4 1.4-7.0 x10E3/uL Lymphs (Absolute) 2.3 0.7-3.1 x10E3/uL Monocytes(Absolute) 0.5 0.1-0.9 x10E3/uL Eos (Absolute) 0.1 0.0-0.4 x10E3/uL Baso (Absolute) 0.0 0.0-0.2 x10E3/uL Immature Granulocytes 0 Not Estab. % Immature Grans (Abs) 0.0 0.0-0.1 x10E3/uL NRBC REAL ESTATE SALES SUPERVISOR Hematology Comments: REAL ESTATE SALES SUPERVISOR jose HPV, Rectal Reviewed date:03/06/2024 11:57:42 AM Interpretation: Performing Lab:[facility] [place], [address] [place] [address], Phone - [phone], Director - Jeremías Notes/Report: Clinical Information:RECD IN [employer] [id number] HPV other hr types Positive Negative HPV 16 Positive Negative HPV 18 Negative Negative This test detects fourteen high-risk HPV types: HPV16, HPV18 and twelve other high-risk types (31, 33, 35, 39, 45, 51, 52, 56, 58, 59, 66, 68) without differentiation. Occult Blood, Fecal, IA Reviewed date:02/28/2024 03:00:09 PM Interpretation:Negative Performing Lab: Notes/Report: Negative Urinalysis, Routine Reviewed date:02/28/2024 03:15:38 PM Interpretation: Performing Lab: Notes/Report: Specific Fabens 1.015 pH 5.0 RPR Reviewed date:12/20/2024 08:07:56 AM Interpretation: Performing Lab:[facility] [address], Phone - [phone], Director [facility] Notes/Report: Clinical Information:SRC:RE SRC:TH RPR Non Reactive Non Reactive HCV Antibody Reviewed date:12/20/2024 06:22:10 AM Interpretation: Performing Lab:[facility] [place], [address] [place] [address], Phone - [phone], Director - Elio Notes/Report: Clinical Information:SRC:RE SRC:TH Hep C Virus Ab Non Reactive Non Reactive HCV antibody alone does not differentiate between previously resolved infection and active infection. Equivocal and Reactive HCV antibody results should be followed up with an HCV RNA test to support the diagnosis of active HCV infection. Ct/GC SUSAN, Rectal Reviewed date:12/21/2024 07:47:08 AM Interpretation: Performing Lab:[facility] [place], [address] [place] [address], Phone - [phone], Director - Jeremías Notes/Report: Clinical Information:SRC:RE SRC:TH C. trachomatis, SUSAN, Rectal Negative Negative N. gonorrhoeae, SUSAN, Rectal Negative Negative Ct/GC SUSAN, Pharyngeal Reviewed date:12/21/2024 07:47:08 AM Interpretation: Performing Lab:[facility] [place], [address] [place], [place] [address], Phone - [phone], Director - Jeremías Notes/Report: Clinical Information:SRC:RE SRC:TH C. trachomatis, SUSAN, Pharyn Negative Negative N. gonorrhoeae, SUSAN, Pharyn Negative Negative RNA, Real Time PCR (Non-Grap h) Reviewed date:03/01/2024 05:37:36 PM Interpretation: Performing Lab:[facility] [place], [place] [address], Phone - [phone], Director - Elio Notes/Report: Clinical Information:SRC: SRC:TH HIV-1 RNA by PCR <20 HIV-1 RNA not detected . The reportable range for this assay is 20 to 10,000,000 copies HIV-1 RNA/mL. . log10 HIV-1 RNA TNP Unable to calculate result since non-numeric result obtained for component test. CD4+Lymphs Reviewed date:02/29/2024 04:54:22 PM Interpretation: Performing Lab:[facility], [address] [place] [address], Phone - [phone], Director - Elio Notes/Report: Clinical Information:SRC: SRC: Absolute CD 4 [place] [phone] /uL % CD 4 Pos. Lymph. 36.4 30.8-58.5 % Effective February 06, 2024, profile [id number] will be made non-orderable [facility] Offers: [id number] [place] T-Lymph-CD4 (contains full CBC) 305256 T-[place] (CD4 Lymph) (contains WBC+Lymphs+NRBC) [id number] CD4+Lymphs (contains 148072 Lymphs) QuantiFeron-TB Gold Plus Reviewed date:03/01/2024 05:37:36 PM Interpretation: Performing Lab:[facility], [address] [facility], Phone - [phone], Director - Elio Notes/Report: Clinical Information:SRC:UC SRC:TH Clinical Information:SRC: SRC:TH QuantiFERON Incubation Incubation performed. QuantiFERON-TB Gold Plus Negative Negative No response to M tuberculosis antigens detected. Infection with M tuberculosis is unlikely, but high risk individuals should be considered for additional testing (ATS/IDSA/CDC Clinical Practice Guidelines, 2017). The reference range is an Antigen minus Nil result of <0.35 IU/mL. Chemiluminescence immunoassay methodology QuantiFERON Criteria Comment QuantiFERON-TB Gold Plus is a qualitative indirect test for M tuberculosis infection (including disease) and is intended for use in conjunction with risk assessment, radiography, and other medical and diagnostic evaluations. The QuantiFERON-TB Gold Plus result is determined by subtracting the Nil value from either TB antigen (Ag) value. The Mitogen tube serves as a control for the test. QuantiFERON TB1 Ag Value 0.12 QuantiFERON TB2 Ag Value 0.13 QuantiFERON Nil Value 0.15 QuantiFERON Mitogen Value >10.00 DEXA Hip and Spine Reviewed date:02/28/2024 03:58:05 PM Interpretation: Performing Lab: Notes/Report: Spine T-Score 0.9 Hip Mean T-Score 1.5 Left Femur T-Score 1.3 Right Femur T-Score 1.6 Electrocardiogram (EKG) Reviewed date:02/29/2024 10:44:59 AM Interpretation:normal sinus rhythm Performing Lab: Notes/Report: normal sinus rhythm X ray : CHEST PA LATERAL Reviewed date:02/29/2024 10:44:59 AM Interpretation:No Active Disease Performing Lab: Notes/Report: No Active Disease CBC With Differential/Platel et Reviewed date:07/02/2024 11:43:38 AM Interpretation: Performing Lab:[facility] [place], [address] [facility], Phone - [phone], Director - [facility]DR[facility] Notes/Report: WBC 5.5 3.4-10.8 x10E3/uL RBC 4.82 4.14-5.80 x10E6/uL Hemoglobin 14.4 13.0-17.7 g/dL Hematocrit 43.7 37.5-51.0 % MCV 91 79-97 fL MCH 29.9 26.6-33.0 pg MCHC 33.0 31.5-35.7 g/dL RDW 13.5 11.6-15.4 % Platelets 272 150-450 x10E3/uL Neutrophils 55 Not Estab. % Lymphs 34 Not Estab. % Monocytes 10 Not Estab. % Eos 1 Not Estab. % Basos 0 Not Estab. % Immature Cells REAL ESTATE SALES SUPERVISOR Neutrophils (Absolute) 3.0 1.4-7.0 x10E3/uL Lymphs (Absolute) 1.8 0.7-3.1 x10E3/uL Monocytes(Absolute) 0.6 0.1-0.9 x10E3/uL Eos (Absolute) 0.1 0.0-0.4 x10E3/uL Baso (Absolute) 0.0 0.0-0.2 x10E3/uL Immature Granulocytes 0 Not Estab. % Immature Grans (Abs) 0.0 0.0-0.1 x10E3/uL NRBC REAL ESTATE SALES SUPERVISOR Hematology Comments: REAL ESTATE SALES SUPERVISOR Comp. Metabolic Panel (14) Reviewed date:07/02/2024 11:43:38 AM Interpretation: Performing Lab:[facility] [place], [address] [facility], Phone - [phone], Director - Elio Notes/Report: Glucose 101 70-99 mg/dL BUN 15 6-24 mg/dL Creatinine 0.93 0.76-1.27 mg/dL eGFR 95 >59 mL/min/1.73 BUN/Creatinine Ratio 16 9-20 Sodium 137 134-144 mmol/L Potassium 4.6 3.5-5.2 mmol/L Chloride 101 96-106 mmol/L Carbon Dioxide, Total 24 20-29 mmol/L Calcium 9.2 8.7-10.2 mg/dL Protein, Total 7.0 6.0-8.5 g/dL Albumin 4.3 3.8-4.9 g/dL Globulin, Total 2.7 1.5-4.5 g/dL Bilirubin, Total 0.4 0.0-1.2 mg/dL Alkaline Phosphatase 96 44-121 IU/L AST (SGOT) 18 0-40 IU/L ALT (SGPT) 19 0-44 IU/L RNA, Real Time PCR (Non-Grap h) Reviewed date:07/02/2024 11:43:38 AM Interpretation: Performing Lab:[facility] [place], [address] [place] [address], Phone - [phone], Director - Luci Notes/Report: HIV-1 RNA by PCR [id number] . The reportable range for this assay is 20 to 10,000,000 copies HIV-1 RNA/mL. . log10 HIV-1 RNA 5.057 CD4+Lymphs Reviewed date:07/02/2024 11:43:37 AM Interpretation: Performing Lab:[facility] [place], [address] [facility], Phone - [phone], Director - Elio Notes/Report: Absolute CD 4 [place] [phone] /uL % CD 4 Pos. Lymph. 35.3 30.8-58.5 % Ct/GC SUSAN, Rectal Reviewed date:08/23/2024 05:15:22 PM Interpretation: Performing Lab:[facility] [place], [address] [facility], Phone - [phone], Director - Jeremías Notes/Report: Clinical Information:SRC:RE C. trachomatis, SUSAN, Rectal Negative Negative N. gonorrhoeae, SUSAN, Rectal Negative Negative GSTRPAO - Gastrointestinal + Parasites (HTRx) Reviewed date:08/22/2024 05:25:46 PM Interpretation: Performing Lab: Notes/Report: Real-Time polymerase chain reaction (TaqMan qPCR) was utilized for detection for all tested organisms and resistance genes. COVID-19 testing separately performed using [employer] COVID-19 Combo kit. Initiation of antimicrobial therapy prior to testing may affect results and can lead to the detection of non-living microorganisms. Detection of microbes must be correlated with current/recent antibiotic usage and patient signs and symptoms. Microbial sensitivity testing is not performed at this lab. Nuclear Control Room Operator to CFU/mL equivalent thresholds were established based on studies using known CFU/mL urine specimens performed at [facility] in [place], [place]. Testing performed by [facility] ([address] [facility], [place] [address]; CLIA# [id number]; Front Desk Officer Jenn Reyes, PhD, [facility])). This test was developed, and its performance characteristics determined by [facility]. It has not been cleared or approved by the FDA. However, such approval/clearance is not required, as the laboratory is regulated and qualified under CLIA to perform high-complexity testing. This test is used for clinical purposes and should not be regarded as investigational or for research. *Approximate copies of target nucleic acid per &micro;L (Low: <2,500 copies/&micro;L, Moderate: 2,500-50,000 copies/&micro;L, High: >50,000 copies/&micro;L) National Infectious Disease Consensus Data Potentially effective oral antibiotics, based on presence of detected microbes, antimicrobial resistance genes, and national antimicrobial sensitivity data (see Summary Antibiogram). dfr (A1, A5), sul (1,2) 26.727 23.000 - 27.000 ppm dfr (A1, A5), sul (1,2) Detected 23.000 - 27.000 ppm tet B, tet M 13.547 23.000 - 27.778 ppm tet B, tet M Detected 23.000 - 27.778 ppm Adenovirus F40/41 0.000 23.000 - 31.55 3 ppm Adenovirus F40/41 Not Detected 23.000 - 31.55 3 ppm Campylobacter coli, jejuni, upsaliensis 0.000 23.000 - 31.921 ppm Campylobacter coli, jejuni, upsaliensis Not Detected 23.000 - 31.921 ppm Clostridioides difficile (toxins A, B) 0.000 19.691 - 24.689 ppm Clostridioides difficile (toxins A, B) Not Detected 19.691 - 24.689 ppm Enteroaggregative E. coli (EAEC) 30.435 19.691 - 24.689 ppm Enteroaggregative E. coli (EAEC) Detected 19.691 - 24.689 ppm Enteroinvasive E. coli (EIEC) / Shigella spp. 25.552 19.691 - 24.689 ppm Enteroinvasive E. coli (EIEC) / Shigella spp. Detected 19.691 - 24.689 ppm Enteropathogenic E. coli (EPEC) 0.000 19.691 - 24.689 ppm Enteropathogenic E. coli (EPEC) Not Detected 19.691 - 24.689 ppm Enterotoxigenic E. coli (ETEC) 0.000 19.691 - 24.689 ppm Enterotoxigenic E. coli (ETEC) Not Detected 19.691 - 24.689 ppm Giardia intestinalis 0.000 23.000 - 32 .603 ppm Giardia intestinalis Not Detected 23.000 - 32 .603 ppm Listeria monocytogenes 0.000 23.000 - 32.327 ppm Listeria monocytogenes Not Detected 23.000 - 32.327 ppm Microsporidium (Enterocytozoon bieneusi, Encephalitozoon intestinalis) 0.000 23.000 - 32.115 ppm Microsporidium (Enterocytozoon bieneusi, Encephalitozoon intestinalis) Not Detected 23.000 - 32.115 ppm Norovirus (Genogroup 1, 2) (g_Norovirus_G1_3) 0.000 23.000 - 30.935 ppm Norovirus (Genogroup 1, 2) (g_Norovirus_G1_3) Not Detected 23.000 - 30.935 ppm Rotavirus A 0.000 23.000 - 33.204 ppm Rotavirus A Not Detected 23.000 - 33.204 ppm Salmonella 0.000 23.000 - 30.907 ppm Salmonella Not Detected 23.000 - 30.907 ppm Shiga toxin-producing E. coli (STEC) 0.000 19.691 - 24.689 ppm Shiga toxin-producing E. coli (STEC) Not Detected 19.691 - 24.689 ppm Shiga toxin- producing E. coli O157 (STEC O157) 0.000 19.691 - 24.689 ppm Shiga toxin- producing E. coli O157 (STEC O157) Not Detected 19.691 - 24.689 ppm Vibrio cholerae, parahaemolyticus, vulnificus 0.000 23.000 - 31.296 ppm Vibrio cholerae, parahaemolyticus, vulnificus Not Detected 23.000 - 31.296 ppm Yersinia enterocolitica 0.000 23.000 - 31.853 ppm Yersinia enterocolitica Not Detected 23.000 - 31.853 ppm Astrovirus 0.000 23.000 - 29.373 ppm Astrovirus Not Detected 23.000 - 29.373 ppm Sapovirus (g_Sapovirus 1/2) 0.000 23.000 - 30.917 ppm Sapovirus (g_Sapovirus 1/2) Not Detected 23.000 - 30.917 ppm Clostridium perfringens 0.000 19.691 - 24.689 ppm Clostridium perfringens Not Detected 19.691 - 24.689 ppm Cryptosporidium 0.000 23.000 - 32.185 ppm Cryptosporidium Not Detected 23.000 - 32.185 ppm Cyclospora cayetanensis 0.000 23.000 - 31.181 ppm Cyclospora cayetanensis Not Detected 23.000 - 31.181 ppm Dientamoeba fragilis 0.000 23.000 - 32 .927 ppm Dientamoeba fragilis Not Detected 23.000 - 32 .927 ppm Entamoeba histolytica 23.522 23.000 - 3 1.749 ppm Entamoeba histolytica Detected 23.000 - 3 1.749 ppm Vitamin B12 and Folate Reviewed date:10/03/2024 05:09:53 PM Interpretation: Performing Lab:[facility] Phone - [phone], [facility] Notes/Report: Clinical Information:RT@[facility] REC@UPL Vitamin B12 114 067-8246 pg/mL Folate (Folic Acid), Serum 10.3 >3.0 ng/mL A serum folate concentration of less than 3.1 ng/mL is considered to represent clinical deficiency. Testosterone, Serum Reviewed date:10/03/2024 05:09:53 PM Interpretation: Performing Lab:[facility] [place] [employer] [facility], [place], Phone - [phone], Director [facility] Notes/Report: Clinical Information:RT@UPL REC@UPL Testosterone 281 264-916 ng/dL Adult male reference interval is based on a population of healthy nonobese males (BMI <30) between 19 and 39 years old. Asher, et.al. JCEM 2017,102;8543-4307. PMID: 02241840. CBC With Differential/Platel et Reviewed date:10/03/2024 05:09:53 PM Interpretation: Performing Lab:[facility] [place], [address], [place], Phone - [phone], Director - [facility] Notes/Report: Clinical Information:RT@[facility] REC@UPL WBC 4.1 3.4-10.8 x10E3/uL RBC 4.36 4.14-5.80 x10E6/uL Hemoglobin 13.1 13.0-17.7 g/dL Hematocrit 40.7 37.5-51.0 % MCV 93 79-97 fL MCH 30.0 26.6-33.0 pg MCHC 32.2 31.5-35.7 g/dL RDW 15.3 11.6-15.4 % Platelets 225 150-450 x10E3/uL Neutrophils 43 Not Estab. % Lymphs 43 Not Estab. % Monocytes 11 Not Estab. % Eos 2 Not Estab. % Basos 1 Not Estab. 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 % Immature Grans (Abs) 0.0 0.0-0.1 x10E3/uL NRBC [employer]STATE SALES SUPERVISOR Hematology Comments: REAL [employer]STATE SALES SUPERVISOR RPR, Rfx Qn RPR/Confirm TP Reviewed date:10/03/2024 05:09:54 PM Interpretation: Performing Lab:[facility] [place], [address] [place] [address], Phone - [phone], Director - Elio Notes/Report: Clinical Information:RT@[facility] REC@[facility] RPR Non Reactive Non Reactive Lipid Panel Reviewed date:10/03/2024 05:09:54 PM Interpretation: Performing Lab:[facility] [place], [address] [place] [address], Phone - [phone], Director - Elio Notes/Report: Clinical Information:RT@[facility] REC@UPL Cholesterol, Total 133 100-199 mg/dL Triglycerides 75 0-149 mg/dL HDL Cholesterol 45 >39 mg/dL VLDL Cholesterol Jacoby 15 5-40 mg/dL LDL Chol Calc ([facility]) 73 0-99 mg/dL LDL Calc Comment: REAL [employer] SALES SUPERVISOR Comp. Metabolic Panel (14) Reviewed date:10/03/2024 05:09:54 PM Interpretation: Performing Lab:[facility] [place], [address] [place] [address], Phone - [phone], Director - Elio Notes/Report: Clinical Information:RT@[facility] REC@[facility] Glucose 96 70-99 mg/dL BUN 20 6-24 mg/dL Creatinine 0.90 0.76-1.27 mg/dL eGFR 98 >59 mL/min/1.73 BUN/Creatinine Ratio 22 9-20 Sodium 140 134-144 mmol/L Potassium 4.3 3.5-5.2 mmol/L Chloride 103 96-106 mmol/L Carbon Dioxide, Total 23 20-29 mmol/L Calcium 9.0 8.7-10.2 mg/dL Protein, Total 6.9 6.0-8.5 g/dL Albumin 4.1 3.8-4.9 g/dL Globulin, Total 2.8 1.5-4.5 g/dL Bilirubin, Total 0.4 0.0-1.2 mg/dL Alkaline Phosphatase 90 44-121 IU/L AST (SGOT) 28 0-40 IU/L ALT (SGPT) 25 0-44 IU/L RNA, Real Time PCR (Non-Grap h) Reviewed date:10/05/2024 07:04:27 AM Interpretation: Performing Lab:[facility] [place], [address] [place] [address], Phone - [phone], Director - Luci Notes/Report: Clinical Information:RT@[facility] REC@UPL HIV-1 RNA by PCR <20 HIV-1 RNA not detected . The reportable range for this assay is 20 to 10,000,000 copies HIV-1 RNA/mL. . log10 HIV-1 RNA TNP Unable to calculate result since non-numeric result obtained for component test. CD4+Lymphs Reviewed date:10/03/2024 05:09:54 PM Interpretation: Performing Lab:[facility] [place], [address] [place] [address], Phone - [phone], Director - Elio Notes/Report: Clinical Information:RT@[facility] REC@[facility] Absolute CD 4 [place] [phone] /uL % CD 4 Pos. Lymph. 36.5 30.8-58.5 % QuantiFeron-TB Gold Plus Reviewed date:10/05/2024 07:04:27 AM Interpretation: Performing Lab:[facility] [place], [address] [place] [address], Phone - [phone], Director - Elio Notes/Report: Clinical Information:RT@[facility] REC@UPL Clinical Information:RT@UPL FZ REC@UPL QuantiFERON Incubation Incubation performed. QuantiFERON-TB Gold Plus Negative Negative No response to M tuberculosis antigens detected. Infection with M tuberculosis is unlikely, but high risk individuals should be considered for additional testing (ATS/IDSA/CDC Clinical Practice Guidelines, 2017). The reference range is an Antigen minus Nil result of <0.35 IU/mL. Chemiluminescence immunoassay methodology QuantiFERON Criteria Comment QuantiFERON-TB Gold Plus is a qualitative indirect test for M tuberculosis infection (including disease) and is intended for use in conjunction with risk assessment, radiography, and other medical and diagnostic evaluations. The QuantiFERON-TB Gold Plus result is determined by subtracting the Nil value from either TB antigen (Ag) value. The Mitogen tube serves as a control for the test. QuantiFERON TB1 Ag Value 0.09 QuantiFERON TB2 Ag Value 0.11 QuantiFERON Nil Value 0.10 QuantiFERON Mitogen Value >10.00 Hemoglobin A1C Reviewed date:10/02/2024 01:09:05 PM Interpretation: Performing Lab: Notes/Report: HbA1c 5.9 X ray : Foot, left Reviewed date:10/03/2024 05:09:54 PM Interpretation:fifth metatarsal shaft fracture, also fifth distal phalanx fracture. Performing Lab: Notes/Report: fifth metatarsal shaft fracture, also fifth distal phalanx fracture. X ray : Foot, left Reviewed date:10/03/2024 05:09:54 PM Interpretation:fifth metatarsal shaft fracture, also fifth distal phalanx fracture. Performing Lab: Notes/Report: fifth metatarsal shaft fracture, also fifth distal phalanx fracture. X ray : Hip, right Reviewed date:10/03/2024 05:09:54 PM Interpretation:no acute fracture Performing Lab: Notes/Report: no acute fracture Reason For Referral Reason [facility] [id number] [address], [place] [address] Diagnosis 1 Closed displaced fra cture of fifth metatarsal bone of left foot, initial encounter (S92.352I) Referral Organization [facility], [facility] Referring Provider First Name Keyur Referring Provider Last Name Bucky Referring Provider Speciality [facility] vincent Referred Provider Specialty Orthopedic S urgery General Notes please also fax the report of the foot xray done at our office on 10/02/24, Debora Sabillon 10/03/2024 08:24:23 AM > faxed to [phone] Referral Priority Stat Reason please evaluate and treat Diagnosis 1 Neuropathy of hand, 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 icisherron Referred Provider Specialty Neurosurgery General Notes Debora Sabillon 10/05 08:32:56 AM > faxed to ss Referral Priority Routine Reason please evaluate and treat Diagnosis 1 Right inguinal herni a (K40.90) Referral Organization [facility] Referring Provider First Name Regis Referring Provider Last Name Prelutskrodney Referring Provider Speciality Internal M edicine Referred Provider Specialty General Surg alec General Notes Debora Sabillon 10/23 08:31:41 AM > [facility] and slu Referral Priority Urgent Medications Medication SIG (Take, Route, Frequency, Duration) Notes Start Date End Date Status Testosterone Cypionate 200 MG/ML INJECT INTRAMUSCULARLY 1 ML EVERY 2 WEEKS (DISCARD UNUSED PORTION AFTER FIRST USE) Injection for 30 days Active Testosterone Cypionate 200 MG/ML INJECT 1 ML INTO THE MUSCLE EVERY 14 DAYS 09/17/2024 Active valACYclovir HCl 1 GM TAKE 1 TABLET BY MOUTH ONCE DAILY Orally Once a day for 10 days Active hydrOXYzine HCl 25 MG TAKE 1 TABLET BY MOUTH EVERY 8 HOURS NEEDED Active Symbicort 160-4.5 MCG/ACT INHALE 2 PUFFS INTO THE LUNGS TWICE DAILY Active Atorvastatin Calcium 40 MG TAKE 1 TABLET BY MOUTH ONCE DAILY Orally Once a day for 30 days Active Atorvastatin Calcium 40 MG TAKE 1 TABLET BY MOUTH ONCE DAILY Active Ergocalciferol 1.25 MG (57140 UT) 1 capsule Orally once a week for 84 days 11/08/2024 Active BD Luer-Hallie Syringe 18G X 1-1/2 3 ML USE DIRECTED WITH TESTOSTERONE to draw up medication for 90 days Active ProAir HFA 108 (90 Base) MCG/ACT 2 puffs as needed Inhalation every 4 hrs for 30 days PATIENT NEEDS APPOINTMENT FOR ANY FUTURE REFILLS Active Needle (Disp) 23G X 1-1/4 as directed to inject medication for 90 days 09/28/2023 Active Pantoprazole Sodium 40 MG Take 1 Tablet by mouth 2 (two) times a day Active Gabapentin 300 MG TAKE 1 CAPSULE BY MOUTH 3 TIMES DAILY Active Escitalopram Oxalate 10 MG TAKE 1 TABLET BY MOUTH ONCE DAILY Active Flonase 50mcg/actuation inhale 2 spray by in NASAL for 30 days Active BD Swab Single Use Regular - Use as directed for injections Active BD Hypodermic Needle 18G X 1 USE DIRECTED Active BD Luer-Hallie Syringe 23G X 1 3 ML USE DIRECTED Active Fluticasone Propionate 50 MCG/ACT Place 2 Sprays in both nostrils daily. Active Polymyxin B-Trimethoprim 05306-4.1 UNIT/ML INSTILL ONE DROP INTO AFFECTED EYE FOUR TIMES A DAY FOR 7 DAYS Active LORazepam 1 MG 1 tab Orally every 8 hours for 30 days As needed need appt 06/01/2024 Active Multivitamin - 1 tablet Orally Once a day for 30 days Active Sharps Container - as directed for 90 days 07/19/2024 Active amLODIPine Besylate 2.5 MG 1 tablet Orally Once a day for 30 days 06/25/2024 Active Pantoprazole Sodium 40 MG 1 tablet Orally Twice a day for 30 days Increasing from 40mg daily to 40mg twice daily Active Tobramycin 0.3 % 2 drops to affected eye Ophthalmic every 4 hrs for 10 days 07/14/2020 Not-Taking Tadalafil 20 MG 1 tablet as needed Orally Once a day 09/21/2023 Active Biktarvy 50-200-25 MG Take 1 tablet by mouth daily Active Immunizations Vaccine Route Administration Date Status Comme nts zzInfluenza, quadrivalent, injectable, preservative free (All) Unknown 06/15/2018 Administered Tdap (Boostrix, Adacel) Unknown 03/13/2019 Pending Dynex Covid-19 Bivalent Booster IM Intramuscular 07/28/2022 Administered Meningococcal MCV4P (Menactra MenACWY-D) IM Intramuscular 04/14/2017 Administered This encounter was unlocked to properly document the Immunization the patient received for integration with [facility]. Meningococcal MCV4P (Menactra MenACWY-D) IM Intramuscular 05/12/2017 Administered This encounter was unlocked to properly document the Immunization the patient received for integration with [facility]. Jynneos Monkeypox/smallpox Vaccine ID Intradermal 02/27/2023 Administered Jynneos Monkeypox/smallpox Vaccine ID Intradermal 03/29/2023 Administered Herpes Zoster (Shingrix) IM Intramuscular 10/15/2021 Administered Herpes Zoster (Shingrix) IM Intramuscular 11/26/2022 Administered Flulaval Quadrivalent (Influenza Vaccine) IM Intramuscular 06/28/2024 Administered Flulaval Unknown 06/01/2019 Refused Flulaval IM Intramuscular 05/26/2020 Administered Flulaval IM Intramuscular 06/25/2021 Administered Flulaval IM Intramuscular 07/28/2022 Administered Comirnaty Covid-19 Vaccine, mRNA (2023-2024Formula) IM Intramuscular 06/28/2024 Administered Social History Sex Assigned At : Social History Observation Description Sex Assigned At Male Problems Problem Type SNOMED Code ICD Code Onset Dates Problem Status W/U Status Risk Notes Problem Human immunodeficiency virus infection (55789251) Human immunodeficiency virus [HIV] disease (B20) Active confirmed Larry Problem Superficial mycosis (971711728) Superficial mycosis, unspecified (B36.9) Active confirmed Larry Problem Hyperlipidemia (59127860) Other hyperlipidemia (E78.4) Active confirmed ANMig Problem Uncomplicated mild persistent asthma (979716065) Mild persistent asthma, uncomplicated (J45.30) Active confirmed Larry Problem 21733068 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) Active confirmed Larry Problem 509157280 Rosacea (L71.9) Active confirmed Larry Problem 727877121 Pain in joint, shoulder region (M25.519) Active confirmed Larry Problem 84105066 Enlarged lymph n odes (R59.9) Active confirmed Larry Problem 99875055 Herpes simplex without mention of complication (B00.9) Active confirmed Larry Problem 49337010 Dermatomycosis, unspecified (B36.9) Active confirmed Larry Problem 322262836091382 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) Active confirmed Problem 80817270 Essential hypertension (I10) Active confirmed Problem Human immunodeficiency virus infection (16473639) Human immunodeficiency virus (HIV) disease (B20) Active confirmed Problem Gastroesophageal reflux disease (207828028) GERD without esophagitis (K21.9) Active confirmed Problem Lower urinary tract symptoms due to benign prostatic hypertrophy (50695172631726) Benign non-nodular prostatic hyperplasia with lower urinary tract symptoms (N40.1) Active confirmed Problem Vitamin D deficiency (84916955) Vitamin D deficiency (E55.9) Active confirmed Problem Herpes simplex (82718475) Herpes simplex (B00.9) Active confirmed Problem Male hypogonadism (88063114) Hypogonadism in male (E29.1) Active confirmed Problem Hyperlipidaemia (83692825) Hyperlipidemia, unspecified hyperlipidemia type (E78.5) Active confirmed Problem 353466974 Vitamin B12 deficiency (E53.8) Active confirmed Problem Dysthymia (76176836) Dysthymia (F34.1) Active c onfirmed Problem 802728948 Neuropathy of kwok nd, unspecified laterality (G56.90) Active confirmed Problem Induratio penis plastica (6282219) Peyronie disease (N48.6) Active confirmed Problem Hypercholesterolemia (66394721) Hypercholesterolemia (E78.00) Active confirmed Problem 341517619 Raynaud's diseas e without gangrene (I73.00) Active confirmed Problem 307255285 MRSA infection (A49.02) Active confirmed Problem 556454794 Paresthesia of b oth hands (R20.2) Active confirmed Problem 83925225 Hypovitaminosis D (E55.9) Active confirmed Problem 86843629 Peritonitis (K65.9) Active confirmed Problem 345439380 History of fragi lity fracture (Z87.311) Active confirmed Vital Signs Heart Rate 86 /min 12/19/2024 Temperature 98.0 degrees Fahrenheit 12/19/2024 Respiratory Rate 14 /min 12/19/2024 Blood pressure diastolic 80 mm Hg 12/19/2024 Oximetry 98 % 12/19/2024 Height 71 in 12/19/2024 Blood pressure systolic 132 mm Hg 12/19/2024 Weight 172.0 lbs 12/19/2024 BMI 23.99 kg/m2 12/19/2024 Encounters Encounter Location Date Provider Diagnosis [address] [address] 02/28/2024 Regis Prelutsky Encounter for genera l adult medical examination with abnormal findings Z00.01 ; Human immunodeficiency virus (HIV) disease B20 ; Encounter for screening for malignant neoplasm of colon Z12.11 ; Benign non-nodular prostatic hyperplasia with lower urinary tract symptoms N40.1 ; Vitamin D deficiency E55.9 ; Chest pain, unspecified type R07.9 ; Encounter for screening for infections with predominantly sexual mode of transmission Z11.3 ; Encounter for screening for other viral diseases Z11.59 ; Encounter for other specified special examinations Z01.89 ; Other problems related to lifestyle Z72.89 ; Corporo-venous occlusive erectile dysfunction N52.02 ; Chronic GERD K21.9 ; Hypogonadism in male E29.1 ; Herpes simplex without mention of complication B00.9 ; Mild persistent asthma, uncomplicated J45.30 ; Hypercholesterolemia E78.00 ; Dysthymia F34.1 and Pain in joint, shoulder region M25.519 [facility] [address] [place] [address] 06/25/2024 Sabrina Trivic Paresthesia of both hands R20.2 ; Raynaud's disease without gangrene I73.00 and Human immunodeficiency virus [HIV] disease B20 [address] [address] 06/28/2024 Regis Esparzalutskrodney Encounter for immuni zation Z23 [facility] [address] [place] [address] 07/19/2024 La Reinoso Encounter for examin ation following treatment at hospital Z09 ; MRSA infection A49.02 ; Essential hypertension I10 ; Cellulitis, face L03.211 and Nasal abscess J34.[address] [address] 08/21/2024 Keyur Lawler Acute diarrhea R19.[address] [address] 10/02/2024 Keyur Lawler Right groin pain R10 .31 ; Left ankle pain, unspecified chronicity M25.572 ; Hypogonadism in male E29.1 ; GERD without esophagitis K21.9 ; Hyperlipidemia, unspecified hyperlipidemia type E78.5 ; Human immunodeficiency virus (HIV) disease B20 ; Tuberculosis screening Z11.1 ; Screening for diabetes mellitus Z13.1 ; Neuropathy G62.9 ; MRSA nasal colonization Z22.322 ; Closed displaced fracture of fifth metatarsal bone of left foot, initial encounter S92.352A ; Neuropathic pain of hand M79.2 and Neuropathy of hand, unspecified laterality G56.90 [facility] [address] [place] [address] 11/08/2024 La Reinoso Irreducible right in guinal hernia K40.30 ; Rebound abdominal tenderness R10.829 ; Peritonitis K65.9 ; History of fragility fracture Z87.311 ; Hypovitaminosis D E55.9 and Vitamin B12 deficiency E53.8 [facility] [address] [place] [address] 12/19/2024 [facility] High risk sexual beh avior, unspecified type Z72.51 ; Human immunodeficiency virus (HIV) disease B20 ; Encounter for screening for infections with predominantly sexual mode of transmission Z11.3 ; Encounter for screening for HIV Z11.4 ; Encounter for screening for other viral diseases Z11.59 ; Herpes simplex B00.9 ; Hypogonadism in male E29.1 ; Hypercholesterolemia E78.00 ; GERD without esophagitis K21.9 ; Non-recurrent bilateral inguinal hernia without obstruction or gangrene K40.20 ; Corporo-venous occlusive erectile dysfunction N52.02 and Infectious diarrhea A09 [facility] [address] [place] [address] 01/31/[address] [address] 01/31/2024 [facility], [address] [address] 02/07/[address] [address] 02/08/2024 [facility], [address] [address] 02/09/2024 [facility], [address] [address] 02/28/2024 [facility], [address] [address] 07/08/2024 [facility], [address] [address] 07/19/2024 [facility] [address] [place] [address] 08/22/2024 Keyur Lawler [facility] [address] [place] [address] 08/23/2024 [facility] [address] [place] [address] 08/23/2024 [facility] [address] [place] [address] 10/02/2024 [facility] [address] [place] [address] 11/08/2024 [facility] [address] [place] [address] 03/09/2024 [facility] [address] [place] [address] 03/14/2024 [facility] [address] [place] [address] 06/01/2024 [facility] F34.1 [facility] [facility] [address] [place] [address] 06/21/2024 [facility], [facility] [address] [place] [address] 07/10/2024 [facility], [facility] [address] [place] [address] 07/10/2024 [facility] [address] [place] [address] 07/10/2024 [facility] [address] [place] [address] 07/19/2024 [facility] [address] [place] [address] 07/19/2024 [facility] [address] [place] [address] 07/19/2024 [facility] [address] [place] [address] 07/30/2024 [facility] [address] [place] [address] 08/21/2024 [facility] [address] [place] [address] 08/21/2024 [facility] [address] [place] [address] 09/05/2024 [facility] [address] [place] [address] 09/07/2024 [facility] [address] [place] [address] 09/10/2024 [facility] [address] [place] [address] 09/17/2024 [facility] [address] [place] [address] 09/19/2024 [facility] [address] [place] [address] 09/19/2024 [facility] [address] [place] [address] 10/08/2024 [facility] [address] [place] [address] 10/08/2024 [facility] [address] [place] [address] 10/08/2024 [facility] [address] [place] [address] 10/10/2024 [facility] [address] [place] [address] 10/10/2024 [facility] [address] [place] [address] 10/11/2024 [facility] [address] [place] [address] 10/12/2024 [facility] [address] [place] [address] 10/18/2024 [facility], [facility] [address] [place] [address] 10/19/2024 [facility] [address] [place] [address] 10/19/2024 [facility], [facility] [address] [place] [address] 10/22/2024 [facility] [address] [place] [address] 10/22/2024 [facility], [facility] [address] [place] [address] 10/24/2024 [facility] [address] [place] [address] 10/25/2024 [facility] [address] [place] [address] 11/02/2024 Regis Watts Assessments Encounter Date Diagnosis (ICD Code) Assessment Notes Treatment Notes Treatment Clinical Notes Section Notes 02/28/2024 Encounter for genera l adult medical examination with abnormal findings (ICD-10 - Z00.01) 06/25/2024 Raynaud's disease without gangrene (ICD-10 - I73.00) . Discussed with Dr. Watts. We agreed this was mostly likely Raynaud's, discussed in depth with patient, start Amlodipine, instructed on use. Check labs. Follow up with Dr. Watts in 3 months or sooner PRN. Patient verbalized understanding regarding all of the above. 06/28/2024 Encounter for immunization (ICD-10 - Z23) 07/19/2024 Encounter for examination following treatment at hospital (ICD-10 - Z09) e 07/19/2024 MRSA infection (ICD- 10 - A49.02) e 08/21/2024 Acute diarrhea (ICD- 10 - R19.7) 10/02/2024 Right groin pain (ICD-10 - R10.31) He will go see Ortho PRICILA for foot fracture, referral placed STAT He will go get EMG of arms for the neuropathy and also see neurosurgery to re-evaluate the C spine fusion he had done years ago He will call his hernia surgeon to get evaluation because he feels like the surgical site is feeling discomfort again ADDENDUM 11/05/2024: The patient has inguinal hernia on ultrasound, and is still having abdominal and pelvic pain and now needs CT scan abdomen and pelvis for surgical planning. 10/02/2024 Left ankle pain, unspecified chronicity (ICD-10 - M25.572) He will go see Ortho PRICILA for foot fracture, referral placed STAT He will go get EMG of arms for the neuropathy and also see neurosurgery to re-evaluate the C spine fusion he had done years ago He will call his hernia surgeon to get evaluation because he feels like the surgical site is feeling discomfort again ADDENDUM 11/05/2024: The patient has inguinal hernia on ultrasound, and is still having abdominal and pelvic pain and now needs CT scan abdomen and pelvis for surgical planning. 06/01/2024 Dysthymia (ICD-10 - F34.1) 06/25/2024 Paresthesia of both hands (ICD-10 - R20.2) . Discussed with Dr. Watts. We agreed this was mostly likely Raynaud's, discussed in depth with patient, start Amlodipine, instructed on use. Check labs. Follow up with Dr. Watts in 3 months or sooner PRN. Patient verbalized understanding regarding all of the above. 11/08/2024 Irreducible right inguinal hernia (ICD-10 - K40.30) 11/08/2024 Rebound abdominal tenderness (ICD-10 - R10.829) 12/19/2024 High risk sexual behavior, unspecified type (ICD-10 - Z72.51) Time was spent giving the patient safer sex counseling . Condoms were offered to patient. 12/19/2024 Human immunodeficien cy virus (HIV) disease (ICD-10 - B20) 12/19/2024 Encounter for screening for infections with predominantly sexual mode of transmission (ICD-10 - Z11.3) 11/08/2024 Peritonitis (ICD-10 - K65.9) 06/25/2024 Human immunodeficien cy virus [HIV] disease (ICD-10 - B20) [facility] [place]. Watts. We agreed this was mostly likely Raynaud's, discussed in depth with patient, start Amlodipine, instructed on use. Check labs. Follow up with Dr. Watts in 3 months or sooner PRN. Patient verbalized understanding regarding all of the above. 07/19/2024 Essential hypertensi on (ICD-10 - I10) e 10/02/2024 Hypogonadism in male (ICD-10 - E29.1) He will go see Ortho PRICILA for foot fracture, referral placed STAT He will go get EMG of arms for the neuropathy and also see neurosurgery to re-evaluate the C spine fusion he had done years ago He will call his hernia surgeon to get evaluation because he feels like the surgical site is feeling discomfort again ADDENDUM 11/05/2024: The patient has inguinal hernia on ultrasound, and is still having abdominal and pelvic pain and now needs CT scan abdomen and pelvis for surgical planning. 02/28/2024 Human immunodeficien cy virus (HIV) disease (ICD-10 - B20) 02/28/2024 Encounter for screening for malignant neoplasm of colon (ICD-10 - Z12.11) 07/19/2024 Cellulitis, face (ICD-10 - L03.211) e 10/02/2024 GERD without esophagitis (ICD-10 - K21.9) He will go see Ortho PRICILA for foot fracture, referral placed STAT He will go get EMG of arms for the neuropathy and also see neurosurgery to re-evaluate the C spine fusion he had done years ago He will call his hernia surgeon to get evaluation because he feels like the surgical site is feeling discomfort again ADDENDUM 11/05/2024: The patient has inguinal hernia on ultrasound, and is still having abdominal and pelvic pain and now needs CT scan abdomen and pelvis for surgical planning. 11/08/2024 History of fragility fracture (ICD-10 - Z87.311) 12/19/2024 Encounter for screening for HIV (ICD-10 - Z11.4) 12/19/2024 Encounter for screening for other viral diseases (ICD-10 - Z11.59) 10/02/2024 Hyperlipidemia, unspecified hyperlipidemia type (ICD-10 - E78.5) He will go see Ortho PRICILA for foot fracture, referral placed STAT He will go get EMG of arms for the neuropathy and also see neurosurgery to re-evaluate the C spine fusion he had done years ago He will call his hernia surgeon to get evaluation because he feels like the surgical site is feeling discomfort again ADDENDUM 11/05/2024: The patient has inguinal hernia on ultrasound, and is still having abdominal and pelvic pain and now needs CT scan abdomen and pelvis for surgical planning. 07/19/2024 Nasal abscess (ICD-1 0 - J34.0) e 02/28/2024 Benign non-nodular prostatic hyperplasia with lower urinary tract symptoms (ICD-10 - N40.1) 11/08/2024 Hypovitaminosis D (ICD-10 - E55.9) 11/08/2024 Vitamin B12 deficien cy (ICD-10 - E53.8) 02/28/2024 Vitamin D deficiency (ICD-10 - E55.9) 10/02/2024 Human immunodeficien cy virus (HIV) disease (ICD-10 - B20) Larry He will go see Ortho PRICILA for foot fracture, referral placed STAT He will go get EMG of arms for the neuropathy and also see neurosurgery to re-evaluate the C spine fusion he had done years ago He will call his hernia surgeon to get evaluation because he feels like the surgical site is feeling discomfort again ADDENDUM 11/05/2024: The patient has inguinal hernia on ultrasound, and is still having abdominal and pelvic pain and now needs CT scan abdomen and pelvis for surgical planning. 12/19/2024 Herpes simplex (ICD- 10 - B00.9) 12/19/2024 Hypogonadism in male (ICD-10 - E29.1) 10/02/2024 Tuberculosis screeni ng (ICD-10 - Z11.1) He will go see Ortho PRICILA for foot fracture, referral placed STAT He will go get EMG of arms for the neuropathy and also see neurosurgery to re-evaluate the C spine fusion he had done years ago He will call his hernia surgeon to get evaluation because he feels like the surgical site is feeling discomfort again ADDENDUM 11/05/2024: The patient has inguinal hernia on ultrasound, and is still having abdominal and pelvic pain and now needs CT scan abdomen and pelvis for surgical planning. 02/28/2024 Chest pain, unspecified type (ICD-10 - R07.9) 02/28/2024 Encounter for screening for infections with predominantly sexual mode of transmission (ICD-10 - Z11.3) 10/02/2024 Screening for diabet es mellitus (ICD-10 - Z13.1) He will go see Ortho PRICILA for foot fracture, referral placed STAT He will go get EMG of arms for the neuropathy and also see neurosurgery to re-evaluate the C spine fusion he had done years ago He will call his hernia surgeon to get evaluation because he feels like the surgical site is feeling discomfort again ADDENDUM 11/05/2024: The patient has inguinal hernia on ultrasound, and is still having abdominal and pelvic pain and now needs CT scan abdomen and pelvis for surgical planning. 12/19/2024 Hypercholesterolemia (ICD-10 - E78.00) 12/19/2024 GERD without esophagitis (ICD-10 - K21.9) 10/02/2024 Neuropathy (ICD-10 - G62.9) He will go see Ortho PRICILA for foot fracture, referral placed STAT He will go get EMG of arms for the neuropathy and also see neurosurgery to re-evaluate the C spine fusion he had done years ago He will call his hernia surgeon to get evaluation because he feels like the surgical site is feeling discomfort again ADDENDUM 11/05/2024: The patient has inguinal hernia on ultrasound, and is still having abdominal and pelvic pain and now needs CT scan abdomen and pelvis for surgical planning. 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 12/19/2024 Non-recurrent bilateral inguinal hernia without obstruction or gangrene (ICD-10 - K40.20) 12/19/2024 Corporo-venous occlusive erectile dysfunction (ICD-10 - N52.02) 10/02/2024 Closed displaced fracture of fifth metatarsal bone of left foot, initial encounter (ICD-10 - S92.352A) He will go see Ortho PRICILA for foot fracture, referral placed STAT He will go get EMG of arms for the neuropathy and also see neurosurgery to re-evaluate the C spine fusion he had done years ago He will call his hernia surgeon to get evaluation because he feels like the surgical site is feeling discomfort again ADDENDUM 11/05/2024: The patient has inguinal hernia on ultrasound, and is still having abdominal and pelvic pain and now needs CT scan abdomen and pelvis for surgical planning. 02/28/2024 Other problems relat ed to lifestyle (ICD-10 - Z72.89) 02/28/2024 Corporo-venous occlusive erectile dysfunction (ICD-10 - N52.02) 10/02/2024 Neuropathic pain of hand (ICD-10 - M79.2) He will go see Ortho PRICILA for foot fracture, referral placed STAT He will go get EMG of arms for the neuropathy and also see neurosurgery to re-evaluate the C spine fusion he had done years ago He will call his hernia surgeon to get evaluation because he feels like the surgical site is feeling discomfort again ADDENDUM 11/05/2024: The patient has inguinal hernia on ultrasound, and is still having abdominal and pelvic pain and now needs CT scan abdomen and pelvis for surgical planning. 12/19/2024 Infectious diarrhea (ICD-10 - A09) 10/02/2024 Neuropathy of hand, unspecified laterality (ICD-10 - G56.90) He will go see Ortho PRICILA for foot fracture, referral placed STAT He will go get EMG of arms for the neuropathy and also see neurosurgery to re-evaluate the C spine fusion he had done years ago He will call his hernia surgeon to get evaluation because he feels like the surgical site is feeling discomfort again ADDENDUM 11/05/2024: The patient has inguinal hernia on ultrasound, and is still having abdominal and pelvic pain and now needs CT scan abdomen and pelvis for surgical planning. 02/28/2024 Chronic GERD (ICD-10 - K21.9) 02/28/2024 Hypogonadism in male (ICD-10 - E29.1) 02/28/2024 Herpes simplex witho ut mention of complication (ICD-10 - B00.9) Larry 02/28/2024 Mild persistent asthma, uncomplicated (ICD-10 - J45.30) Larry 02/28/2024 Hypercholesterolemia (ICD-10 - E78.00) 02/28/2024 Dysthymia (ICD-10 - F34.1) 02/28/2024 Pain in joint, shoulder region (ICD-10 - M25.519) 07/19/2024 Other Continue Bactrim DS for 12 days. No current signs of active infection. Will send in mupirocin to use as needed if starts to get a flare up anywhere else. This is the first MRSA + infection, no indication for decolonization at this time Blood pressure mildly high, recommend dASH diet. Pt to return in 09/2024 for follow up with Dr. Jack schaffer 11/08/2024 Other Start taking Vitamin b12 500-1000 mcg daily x12 weeks then start multivitamin after that. medical support assistant vitamin D oral 50,000 IU once a week for bone health. Altagracia is working on CT of abdomen. Follow up in 6 weeks. 12/19/2024 Other Time was spent giving the patient safer sex counseling . Condoms were offered to patient. Time was spent giving the patient safer sex counseling . Condoms were offered to patient. Plan Of Treatment Pending Test Test Name Order Date Ultrasound Abdomen Complete 10/11/2024 DEXA Hip and Spine 11/26/2022 EMG/NCV ARMS 10/02/2024 Ultrasound Abdomen Limited (specificy qu adrant) 06/07/2023 CT Angio Abdominal Aorta wit h Lower Extremity Runoff, W Contrast W/ 3D Reconstruction 12/27/2022 Testosterone, Serum 02/28/2024 CBC With Differential/Platelet 6 CBC With Differential/Platelet 7 CBC With Differential/Platelet RPR 05/05/2021 Hep B Surface Ab 05/05/2021 HBsAg Screen 05/05/2021 Hep A Ab, Total 05/05/2021 PSA - Prostate-Specific Ag, Serum 2020 Vitamin D, 25-Hydroxy 05/05/2021 HCV Antibody 05/05/2021 Chlamydia/GC Amplification 12/19/2024 Lipid Panel 05/05/2021 Hepatic Function Panel (7) 05/05/2021 Basic Metabolic Panel (8) 05/05/2021 RNA, Real Time PCR (Non-Graph) CD4+Lymphs 05/05/2021 CT Abdomen and Pelvis W and W/O contrast 11/08/2024 CT Abdomen and Pelvis W and W/O contrast 10/08/2024 Ultrasound Extremity Limited 10/19/2024 2D Echo w/Doppler 11/26/2022 [facility] - Diarrheal Disease Add-on Group 12/19/2024 Next Appt Details Provider Name:Keyur gonzalez, 03/18/2025 03:30:00 PM, [address] [place], [address], Insurance Providers Payer Name Payer Address Payer Phone Subscriber Number Group Number Insured Name Patient Relationship to Insured Coverage Start Date Coverage End Date Home [facility] Plan [address] [place], [place] [id number] Boby Mercado Self - patient is the insured Medications Administered Medication Instructions Date of Administration Dosage Notes Cyanocobalamin 11/08/2024 1000 ug cefTRIAXone Sodium 03/15/2023 500 mg Bicillin 07/13/2019 2.4 mL Testosterone 200 mg 06/01/2019 200 mg
--- OUTSIDE RECORDS SUMMARY | 2025-01-29 10:24 | XMS_ITS | Encounter Summary ---
Author Organization [facility] Health Address [address] [place] [address] Care Team Providers Care Macroeconomics Professor Name Role Phone Regis Watts MD Primary Care Provider [phone] Reason for Visit * Reason Onset Date Comments MEDICATION REFILL 11/02/2020 Encounter Details Date Type Department Care Team (Late Contact Info) Description 11/02/2020 Refill [facility] [address] [place] [address], [place] [id number] Shelli Reese MD [address] [place] [address] [address] [place] [id number] MEDICATION REFILL Social History Tobacco Use Types Packs/Day Years Used Date Smoking Tobacco: Former Cigarettes Q uit: 09/05/1999 Smokeless Tobacco: Current Alcohol Use Standard Drinks/Week Comments Yes 0 (1 standard drink = 0.6 oz pur e alcohol) Sex and Gender Information Value Date Recorded Sex Assigned at Not on file Legal Sex Male 11:07 PM CDT Gender Identity Not on file Sexual Orientation Not on file documented as of this encounter Plan of Treatment Upcoming Encounters Date Type Department Care Team (Late Contact Info) Description 02/07/2025 4:00 PM CDT Office Visit [facility] Health Neurosciences [address] [place] [address] Augie Cook MD [address] [place] [address] 02/11/2025 11:34 AM CDT Hospital Encounter [facility] [address] [place] [address] Viet Mallory DO [address] [place] [address] Surgery General 02/11/2025 11:34 AM CDT - 02/11/2025 1:34 PM CDT Surgery [facility] [address] [place] [address] Viet Mallory, DO [address] [place] [address] REPAIR RECURRENT INGUINAL HERNIA WITH MESH--RIGHT, REPAIR OF INITIAL INGUINAL HERNIA WITH MESH--LEFT Scheduled Procedures Name Priority Associated Diagnoses Date/Ti me REPAIR INGUINAL HERNIA Diagnosis unknown 02/11/2025 11:34 AM CDT documented as of this encounter Visit Diagnoses Diagnosis H/O folliculitis Personal history of diseases of skin and subcutaneous tissue Diagnosis unknown Other unknown and unspecified cause of morbidity or mortality documented in this encounter Care Teams Macroeconomics Professor Relationship Specialty Start Date End Date Regis Watts MD [address] [place] [phone] PCP - General 02/09/18 documented as of this encounter
--- OUTSIDE RECORDS SUMMARY | 2025-01-29 10:24 | XMS_ITS | Referral Summary ---
Author Organization [address] Address [facility] [place] [address] Care Team Providers Care Intermediate Teacher Name Role Phone Regis Watts MD Primary Care Provider [phone]- [phone] Allergies Active Allergy Reactions Criticality Noted Date [...] 07/11/2024 Assessment & Plan (07/12/2024 4:48 PM MACHINE REPAIRER): Secondary to nasal abscess. CT facial bones [...] PRN Assessment & Plan (07/11/2024 1:21 AM MACHINE REPAIRER): Secondary to nasal abscess. Here with WBC [...] 07/11/2024 Assessment & Plan (07/11/2024 7:10 AM MACHINE REPAIRER): Continue home symbicort and PRN albuterol. Assessment & Plan (07/11/2024 1:22 AM MACHINE REPAIRER): Continue home symbicort and PRN albuterol. Anxiety 07/11/2024 Assessment & Plan (07/11/2024 7:10 AM MACHINE REPAIRER): Continue home lexapro Assessment & Plan (07/11/2024 1:22 AM MACHINE REPAIRER): Continue home lexapro Elevated troponin 03/15/2024 Inguinal hernia without obstruction or gangrene 07/18/2023 Gastroesophageal reflux disease 06/27/2023 Assessment & Plan (07/11/2024 1:19 AM MACHINE REPAIRER): Continue home pantoprazole Hypercholesterolemia 06/27/2023 Lower urinary tract symptoms due to benign prostatic hyperplasia 06/27/2023 HIV infection 06/16/2018 Assessment & Plan (07/12/2024 4:47 PM MACHINE REPAIRER): Continue home biktarvy Continue Valacyclovir for ppx. CD4 : 615 HIV RNA: 126 Assessment & Plan (07/11/2024 1:19 AM MACHINE REPAIRER): Continue home biktarvy Continue Valacyclovir for ppx. - Follow up home HIV RNA and CD4 count Hyperlipidemia 06/16/2018 Assessment & Plan (07/11/2024 7:09 AM MACHINE REPAIRER): C/w home atorvastatin Assessment & Plan (07/11/2024 1:20 AM MACHINE REPAIRER): Continue home atorvastatin. Seasonal allergic rhinitis 06/16/2018 Rosacea 07/28/2016 Irritant dermatitis 06/17/2016 Eczema 06/17/2016 Arthralgia of shoulder 12/19/2013 Social History Tobacco Use Types Packs/Day Years [...] on file Legal Sex Male 7:10 AM MACHINE REPAIRER Gender Identity Not on file Sexual Orientation Not on file Last Filed Vital Signs Vital Sign Reading Time Taken Comments Blood Pressure 150/72 07/13/2024 7:34 AM MACHINE REPAIRER Pulse 75 07/13/2024 7:34 AM MACHINE REPAIRER Temperature 36.6 C (97.9 F) 07/13/2024 7:34 AM MACHINE REPAIRER Respiratory Rate 18 07/13/2024 7:34 AM MACHINE REPAIRER Oxygen Saturation 98% 07/13/2024 7:34 AM MACHINE REPAIRER Inhaled Oxygen Concentration - - Weight 70.3 kg (155 lb) 07/11/2024 3:25 AM MACHINE REPAIRER Height 177.8 cm (5' 10) 07/11/2024 3:25 AM MACHINE REPAIRER Body Mass Index 22.24 07/11/2024 3:25 AM MACHINE REPAIRER Plan of Treatment Not on file Medical Devices Implanted Type Area Fuel Agent Device Identifier Shelf Expiration Date Model / Serial / Lot [employer] Bard Mesh Surgical Mid Anatomical Synthetic Patch 3dmax 4x6in [id number] - [id number] Implanted:Qty: 1 on 07/22/2023 by Sania Melgoza MD at [facility] Mesh Right: Abdomen [employer] Bard [id number] 12/01/2027 [id number] / / Procedures Procedure Name Priority Date/Time Associated Diagnosis Comments HEMOGLOBIN A1C Routine 07/11/2024 8:52 PM MACHINE REPAIRER LIPID PANEL STAT 03/14/2024 9:29 AM CDT URINALYSIS, MICROSCOPIC ONLY STAT 09/01/2023 1:04 AM MACHINE REPAIRER COLONOSCOPY 07/01/2023 10:58 AM CDT SERUM HEPATITIS C AB Routine 04/12/2014 3:12 PM CDT from Last 3 Months or Most Recently Relevant to Health Maintenance Results * (ABNORMAL) Hemoglobin A1c (07/11/2024 8:52 PM MACHINE REPAIRER) Hgb A1C 6.1(H) 4.0 - 5.6 % [...] a fasting glucose. Blood 07/11/2024 8:52 PM MACHINE REPAIRER 07/11/2024 9:18 PM MACHINE REPAIRER us Hilary Medina MD LAB BLOOD ORDERABLES Final Res ult [facility] [place] [address] * (ABNORMAL) Lipid panel (03/14/2024 9:29 AM [...] revised on 2018. HDL 32(L) >=40 mg/dL [facility] Comment: Interpretive Data Ages < or [...] on 2018. LDL, calculated 46 <=129 mg/dL [facility] Comment: Interpretive Data Ages < or [...] revised on 2018. Non-HDL Cholesterol 60 mg/dL [facility] Comment: Interpretive Data Ages < or [...] last revised on 2018. Chol/HDL ratio 3 [facility] Blood 03/14/2024 9:29 AM CDT 03/14/2024 9:50 [address] CDT [address] [facility] - 03/14/2024 3:39 PM CDT This lipid panel was automatically ordered due to a significant change in Troponin. The dietary status of the patient at the collection time should be correlated with the lipid results. Catrachito Plata MD LAB BLOOD ORDERABLES Final Result Performing Organization Address [facility] Co de Phone Number [facility] [place] [address] * (ABNORMAL) Urinalysis, microscopic only (09/01/2023 1:04 AM MACHINE REPAIRER) WBC, ur 0-5 0 - 5 /HPF [facility] RBC, ur 3-5(A) 0 - 2 /HPF [facility] Epithelial cells, squamous, ur 1-5 0 - 5 /HPF [facility] Mucous, ur Present(A) [facility] Hyaline casts, ur 1-5 0 - 10 /LPF [facility] Culture Reflex Comment Reflex conditions for urine culture (WBC >10) not met. [facility] Urine 09/01/2023 1:04 AM MACHINE REPAIRER 09/01/2023 1:10 AM MACHINE REPAIRER Brant Hoyt MD PhD LAB URINE ORDERABLES Fi nal Result Performing Organization Address [facility] Co de Phone Number [facility] [place] [address] * COLONOSCOPY (07/01/2023 10:58 AM CDT) Anatomical Region Laterality Modality Other Narrative Procedure Note Jessica Heaton MD - 07/01/2023 10:58 AM CDT [facility] END[facility] Patient Name: Boby Abraham Procedure Date: 07/01/2023 10:58AM Date of : 1965 Admit Type: Outpatient Age: 58 Gender: Male Attending MD: Jessica Heaton MD Room: [facility] ENDOSCOPY ROOM 4 Note Status: Finalized [...] The scope was passed under direct vision.The CF [id number] endoscope was introduced through the anus and advanced to the terminal ileum, with identification of the appendiceal orifice and IC valve. The colonoscopy was performed without difficulty. The patient tolerated the procedurewell. The quality of the bowel preparation was evaluated using the BBPS ([place] Bowel Preparation Scale)with scores of: Right Colon [...] On: 07/01/2023 10:58 AM Recognized by the [employer] for promoting quality in endoscopy us Jessica Heaton MD ENDOSCOPY PROCEDURES Fi nal [...] offers HCV Ab w/Reflex to Verification test #[id number]. Serum 04/12/2014 3:12 PM CDT us Historical Provider LAB BLOOD ORDERABLES Keesha galvan Result Performing Organization Address City/State/[facility] Co de Phone Number HISTORICAL RESULTS from Last 3 Months or Most Recently Relevant to Health Maintenance Insurance [facility] HEALTH [facility]AN [facility] HEALTH PLAN [facility] ANTHEM ACCESS CHOICE Advance Directives For more information, please contact: [phone] * Full Code (Latest Code Status on File) Date Activated Date Inactivated Comments 07/11/2024 3:16 AM 07/13/2024 6:05 PM * Full Code Date Activated Date Inactivated Comments 03/15/2024 5:01 AM 03/15/2024 5:47 PM * Full Code Date Activated Date Inactivated Comments 07/01/2023 11:07 AM 07/01/2023 4:43 PM Care Teams Intermediate Teacher Relationship Specialty Start Date End Date Regis Watts MD [address] [place] [address] PCP - General 05/26/17
--- OUTSIDE RECORDS SUMMARY | 2025-01-29 10:25 | XMS_ITS | Encounter Summary ---
Author Organization [facility] Healthcare Address [address] [place] [address] Care Team Providers Care Weekday Babysitter Name Role Phone Regis Watts MD Primary Care Provider [phone]- [phone] Reason for Visit * Reason Onset Date Comments READY TO SCHEDULE 06/24/2023 Encounter Details Date Type Department Care Team (Late st Contact Info) Description 06/24/2023 Telephone [facility] Specialty Services [address] [place] [address] Miscellaneous, Not In File READY TO SCHEDULE Social History Tobacco Use Types Packs/Day Years Used Date Smoking Tobacco: Former Sex and Gender Information Value Date Recorded Sex Assigned at Not on file Legal Sex Male 7:10 AM ASSISTANT PROFESSOR OF ECONOMICS Gender Identity Not on file Sexual Orientation Not on file documented as of this encounter Plan of Treatment Not on file documented as of this encounter Visit Diagnoses Not on filedocumented in this encounter Additional Health Concerns Infection Onset Date Last Indicated Resolved Time MRSA Comment:MRSA Isolation Alf 11/07/24 07/11/2024 07/11/2024 11/07/2024 6:[address] documented as of this encounter Care Teams Weekday Babysitter Relationship Specialty Start Date End Date Regis Watts MD [address] [place] [address] PCP - General 05/26/17 documented as of this encounter
--- OUTSIDE RECORDS SUMMARY | 2025-01-29 10:25 | XMS_ITS | Encounter Summary ---
Author Organization [facility] Health Address [address] [facility] [place] [address] Care Team Providers Care Watch Parts Grinder Name Role Phone Regis Watts MD Primary Care Provider [phone] Reason for Visit * Reason Onset Date Comments Medication Issue 05/18/2023 Encounter Details Date Type Department Care Team (Late st Contact Info) Description 05/18/2023 Telephone [facility] - Centralized Scheduling [address] [place] [phone] Shelli Reese MD [address] [place] [address] Medication Issue Social History Tobacco Use Types Packs/Day Years [...] on file documented as of this encounter Miscellaneous Notes * Telephone Encounter - Josselyn Seaman MA - 05/18/2023 1:09 PM CDT Called and spoke to pharm, they adv'd me it was already being handled on the other line by Carlita.Thanked and ended call. Josselyn Seaman MA * Telephone Encounter - Asia Brown - 05/18/2023 12:44 PM CDT Pharmacy needs clarification of dose on dupilumab (Dupixent) 300 MG/2ML prefilled pen 2 mL documented in this encounter Plan of Treatment Upcoming Encounters Date Type Department Care Team (Late st Contact Info) Description 02/07/2025 4:00 PM CDT Office Visit [facility] Neurosciences [address] [facility] [address] [place] [address] Augie Cook MD [address] [facility] [address] [place] [phone] 02/11/2025 11:34 AM CDT Hospital Encounter [facility] PERIOPERATIVE [address] [place] [address] Viet Mallory DO [address] [facility] [address] [place] [phone] Surgery General 02/11/2025 11:34 AM CDT - 02/11/2025 1:34 PM CDT Surgery [facility] [address] [place] [address] Viet Mallory DO [address] [facility] [address] [place] [phone] REPAIR RECURRENT INGUINAL HERNIA WITH MESH--RIGHT, REPAIR OF INITIAL INGUINAL HERNIA WITH MESH--LEFT Scheduled Procedures Name Priority Associated Diagnoses Date/Ti mn REPAIR INGUINAL HERNIA Diagnosis unknown 02/11/2025 11:34 AM CDT documented as of this encounter Visit Diagnoses Not on filedocumented in this encounter Care Teams Watch Parts Grinder Relationship Specialty Start Date End Date PrelutRegis burgess MD [address] [place] [phone] PCP - General 02/09/18 documented as of this encounter
--- OUTSIDE RECORDS SUMMARY | 2025-01-29 10:25 | XMS_ITS | Encounter Summary ---
Author Organization [facility] Address [address] [place] [address] Care Team Providers Care Mcat Tutor Name Role Phone Provider, Outside Primary Care Provider [phone] Reason for Visit * Reason Onset Date Comments Appointment Reminder 12/20/2024 Encounter Details Date Type Department Care Team (Late st Contact Info) Description 12/20/2024 / TELEPHONE [facility] [address] [place] [phone] Amari Dunham LCSW [address] [place] [address] Post traumatic stress disorder (Primary Dx); Problem related to social environment, unspecified Social History Tobacco Use Types Packs/Day Years Used Date Smoking Tobacco: Never Smokeless Tobacco: Never Social Connections Answer Date Recorded Connectedness 0 05/17/2024 Financial Resource Strain Answer Date R ecorded Financial Resource Strain 0 2023 Stress Answer Date Recorded Stress 0 01/03/2024 Physical Activity Answer Date Recorded Physical Activity 0 01/03/2024 Food Insecurity Answer Date Recorded Food 0 05/31/2024 Transportation Needs Answer Date Record ed Transportation 0 01/03/2024 Housing Stability Answer Date Recorded Housing 0 01/03/2024 Safety and Environment Answer Date Norm rded Safety 0 01/03/2024 Utilities Answer Date Recorded Utilities 0 01/03/2024 Employment Answer Date Recorded Stress 0 05/17/2024 Sex and Gender Information Value Date Recorded Sex Assigned at Male 01/20/2024 12:46 PM PDT Legal Sex Male 12:32 PM PDT Gender Identity Male 01/20/2024 12:46 PM PDT Sexual Orientation [place] 01/20/2024 12 :46 PM PDT documented as of this encounter Nursing Notes * Amari uDnham LCSW - 12/20/2024 1:01 PM CDT Data: Therapist attempted to call patient and there was not a response. Therapist left a HIPPA compliant voice mail requesting a call back from the patient. Assessment: There are NO KNOWN SAFETY CONCERNS at the time of call being placed. Plan: Therapist will not take any additional action unless initiated by the patient. The rationale is to respect the patient's right to self-determine treatment. NORRIS Jurado LCSW documented in this encounter Plan of Treatment Upcoming Encounters Date Type Department Care Team (Late st Contact Info) Description 01/30/2025 1:00 PM CDT BH/MH Visits [address] [phone] Amari Dunham LCSW [address] [place] [address] 02/06/2025 2:00 PM CDT BH/MH Visits [address] [phone] Amari DunhamMANUEL [address] [place] [address] 02/13/2025 2:00 PM CDT BH/MH Visits [address] [phone] Amari DunhamMANUEL [address] [place] [address] 02/20/2025 2:30 PM CDT BH/MH Visits [address] [phone] Amari Dunham LCSW [address] [place] [address] 02/27/2025 1:00 PM CDT BH/MH Visits [address] [phone] Amari Dunham, CHIP SILO TENDER [address] [place] [address] 07/25/2025 8:30 AM VEHICLE CHECK IN CLERK Office Visit [address] [phone] Becky Wong, [address] [address] documented as of this encounter Visit Diagnoses Diagnosis Post traumatic stress disorder- Primary Posttraumatic stress disorder Problem related to social environment, unspecified documented in this encounter Additional Health Concerns Assessment Noted Time PHQ-9 Depression Total Score: 13 12/09/ 025 10:24 AM PDT documented as of this encounter Care Teams Mcat Tutor Relationship Specialty Start Date End Date Provider, Outside N/A N/A PCP - General Specialist - Other Service Providers 01/19/24 documented as of this encounter
--- OUTSIDE RECORDS SUMMARY | 2025-01-29 10:25 | XMS_ITS | Patient Health Record ---
Author Organization [facility] Address [address] [facility] [address] [place], [place] [id number] Support Name Relationship Address Phone Boby Srinivasan Guarantor Unknown [phone] Reason For Referral No Information Immunizations Vaccine Route Administration Date Status Comme nts Moderna 1st IM Intramuscular 11/01/2020 Administered Moderna 2nd IM Intramuscular 11/29/2020 Administered Plan Of Treatment No Information Insurance Providers Payer Name Payer Address Payer Phone Subscriber Number Group Number Insured Name Patient Relationship to Insured Coverage Start Date Coverage End Date [employer] [address] [place], [place] [id number] [phone] [id number] Boby Srinivasan Self - patient is the insured
--- OUTSIDE RECORDS SUMMARY | 2025-01-29 10:25 | XMS_ITS | Clinical Summary ---
Author Organization [facility] Address [address] [place] [address] Care Team Providers Care Conveyor Feeder Name Role Phone Provider, Outside Primary Care Provider [phone] Source Comments PLEASE NOTE, if this patient is a minor, it may be UNLAWFUL to discuss sensitive information that is contained in these records (such as FAMILY PLANNING, MENTAL HEALTH or SUBSTANCE ABUSE) with the minor patient's parent or other person without the patient's specific authorization.[facility] Allergies Active Allergy Reactions Criticality Noted Date Comments Nsaids (Non-Steroidal Anti-I nflammatory Drug) Swelling 02/14/2018 Medications dupilumab (DUPIXENT PEN) 300 mg/2 mL pnij Inject 2mL subcutaneous every 14 days 05/04/20 23 Active gabapentin (NEURONTIN) 300 mg capsule Take 2 Capsules by mouth 3 (three) times daily 04/16/20 23 Active pantoprazole (PROTONIX) 40 mg grps 1 Tablet once daily Active tacrolimus (PROTOPIC) 0.1 % ointment Apply to rash on the face and body twice daily. 04/21/20 21 Active triamcinolone (KENALOG) 0.1 % ointment Apply to affected area on body BID. 90 day supply 04/16/20 23 Active valACYclovir (VALTREX) 1 gram tablet 1 Tablet once daily Active hydrOXYzine HCL (ATARAX) 25 mg tablet Take 25 mg by mouth daily 04/16/20 23 Active tadalafiL (CIALIS) 20 mg tablet TAKE 1 TABLET BY MOUTH ONCE DAILY NEEDED 30 Tablet 11 01/26/20 24 Active albuterol HFA (PROAIR HFA) 90 mcg/actuation inhaler INHALE 2 PUFFS EVERY 4 HOURS NEEDED 18 g 3 01/23/2025 12:08 PM PDT 01/26/20 24 Active needle, disp, 18 G 18 gauge x 1 ndle USE DIRECTED 3 Each 11 01/23/2025 12:08 PM PDT 03/21/20 24 Active syringe with needle (BD LUER-JULIA SYRINGE) 3 mL 23 x 1 syrg USE DIRECTED 3 Each 11 01/23/2025 12:08 PM PDT 03/21/20 24 Active LORazepam (ATIVAN) 1 mg tablet Take 1 Tablet by mouth 3 (three) times daily as needed 30 Tablet 04/18/2024 1:27 PM PDT 04/17/20 24 Active polymyxin B sulf-trimethop rim (POLYTRIM) 10,000 unit- 1 mg/mL ophthalmic solution INSTILL ONE DROP INTO AFFECTED EYE FOUR TIMES A DAY FOR 7 DAYS 10 mL 04/18/2024 1:27 PM PDT 04/17/20 24 Active fluticasone (FLONASE) 50 mcg/actuation nasal spray Place 2 Sprays in both nostrils daily 16 g 3 05/16/2024 1:08 PM PDT 05/14/20 24 Active multivitamin with folic acid (DAILY-NATALY, WITH FOLIC ACID,) 400 mcg tab Take 1 tablet by mouth once daily 30 Tablet 11 07/19/2024 11:29 AM PST 05/14/20 24 Active LORazepam (ATIVAN) 1 mg tablet TAKE ONE TABLET BY MOUTH EVERY 8 HOURS NEEDED 90 Tablet 5 08/20/2024 1:45 PM PST 06/01/20 24 Active empty container (BD SHARPS BOARD CERTIFIED BEHAVIORAL ANALYST) Use to dispose of sharps as directed 1 Each 3 07/19/2024 11:30 AM PST 07/19/20 24 Active mupirocin (BACTROBAN) 2 % ointment Apply 1 application externally twice a day as needed for infected skin lesion - 5 days 30 g 07/20/2024 7:51 AM PST 07/19/20 24 Active sulfamethoxazo le-trimethopri m (BACTRIM DS) 800-160 mg per tablet Take 1 tablet by mouth twice per day 20 Tablet 07/31/2024 10:37 AM PST 07/30/20 24 Active ciprofloxacin (CIPRO) 500 mg tablet TAKE 1 TABLET BY MOUTH TWICE DAILY FOR 7 DAYS 14 Tablet 08/23/2024 1:54 PM PST 08/22/20 24 Active tinidazole (TINDAMAX) 500 mg tablet TAKE 4 TABLETS BY MOUTH ONCE A DAY WITH FOOD 20 Tablet 08/22/20 24 Active metroNIDAZOLE (FLAGYL) 500 mg tablet TAKE ONE TABLET BY MOUTH THREE TIMES DAILY FOR 7 DAYS 21 Tablet 08/23/2024 1:54 PM PST 08/23/20 24 Active ciprofloxacin (CIPRO) 500 mg tablet Take 1 Tablet by mouth every 12 (twelve) hours for 10 days. 20 Tablet 09/06/2024 11:59 AM PST 09/06/19 25 Active metroNIDAZOLE (FLAGYL) 500 mg tablet Take 1 Tablet by mouth 3 (three) times daily for 10 days. 30 Tablet 09/06/2024 11:59 AM PST 09/06/19 25 Active escitalopram (LEXAPRO) 10 mg tablet TAKE 1 TABLET BY MOUTH ONCE DAILY 30 Tablet 5 01/23/2025 12:08 PM PDT 09/14/19 25 Active gabapentin (NEURONTIN) 300 mg capsule TAKE 1 CAPSULE BY MOUTH 3 TIMES DAILY 90 Capsule 5 01/23/2025 12:08 PM PDT 09/14/19 25 Active hydrOXYzine HCL (ATARAX) 25 mg tablet TAKE 1 TABLET BY MOUTH EVERY 8 HOURS NEEDED 90 Tablet 5 01/23/2025 12:08 PM PDT 09/14/19 25 Active testosterone cypionate (DEPO-TESTOSTE BENNETT) 200 mg/mL injection INJECT 1 ML INTO THE MUSCLE EVERY 14 DAYS 2 mL 5 01/23/2025 12:08 PM PDT 09/17/19 25 Active doxycycline (VIBRAMYCIN) 100 mg capsule TAKE 1 CAPSULE BY MOUTH TWO TIMES DAILY WITH FOOD FOR 14 DAYS 28 Capsule 09/19/2024 12:00 PM PST 09/19/19 25 Active mupirocin (BACTROBAN) 2 % ointment APPLY EXTERNALLY TWICE A DAY 5 DAYS 22 g 10/08/2024 1:13 PM PST 10/02/19 25 Active atorvastatin (LIPITOR) 40 mg tablet TAKE 1 TABLET BY MOUTH ONCE DAILY 30 Tablet 3 01/23/2025 12:08 PM PDT 10/22/19 25 Active budesonide-for moteroL (SYMBICORT) 160-4.5 mcg/actuation inhaler INHALE 2 PUFFS INTO THE LUNGS TWICE DAILY 10.2 g 3 01/23/2025 12:08 PM PDT 10/22/19 25 Active ergocalciferol (VITAMIN D-2) 1,250 mcg (50,000 unit) capsule TAKE 1 CAPSULE BY MOUTH EVERY WEEK 12 Capsule 1 01/23/2025 12:08 PM PDT 11/09/19 25 Active pantoprazole (PROTONIX) 40 mg EC tablet Take 1 Tablet by mouth 2 (two) times a day 60 Tablet 3 01/23/2025 12:08 PM PDT 11/21/19 25 Active bictegrav-emtr icit-tenofov ala (BIKTARVY) 50-200-25 mg tab Take 1 tablet by mouth daily 30 Tablet 2 01/23/2025 12:08 PM PDT 01/22/20 25 Active alcohol swabs USE DIRECTED FOR INJECTIONS 100 Each 3 01/23/2025 12:08 PM PDT 01/22/20 25 Active alcohol swabs Use as directed for injections 100 Each 3 12/26/2024 11:00 AM PDT 09/14/19 25 025 Discontinu ed(Reorder (E-Cancel Not Sent)) bictegrav-emtr icit-tenofov ala (BIKTARVY) 50-200-25 mg tab Take 1 tablet by mouth daily 30 Tablet 2 12/26/2024 11:00 AM PDT 10/23/19 25 025 Discontinu ed(Reorder (E-Cancel Not Sent)) azithromycin (ZITHROMAX) 500 mg tablet Take 2 Tablets by mouth once for 1 dose 2 Tablet 01/09/2025 2:34 PM PDT 01/10/20 25 025 Hospital, Clinic, or Other Facility Administered Medication Ordered Dose Route Frequency Start Date End Date Status lidocaine (Xylocaine) 10 mg/mL (1 %) injection 20 mgIndications:Gonococcal urethritis 20 mg IM Once 01/09/2025 01/09/2025 Ended cefTRIAXone (Rocephin) vial 500 mgIndications:Gonococcal urethritis 500 mg IM Once 01/09/2025 01/09/2025 Ended Active Problems Problem Noted Date Diagnosed Date Suicidal ideation 11/04/2024 Post traumatic stress disorder 11/04/2024 Problem related to social environment, unspecifi ed 11/04/2024 Inguinal hernia without obstruction or gangrene 07/18/2023 Gastroesophageal reflux disease 06/27/2023 Hypercholesterolemia 06/27/2023 Lower urinary tract symptoms due to benign prostatic hyperplasia 06/27/2023 Dermatitis venenata 04/21/2021 Hand dermatitis 04/21/2021 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 Urinary tract infectious disease 09/11/2019 Dermatographism 02/06/2019 Idiopathic urticaria 09/01/2018 Other pruritus 08/08/2018 Balanoposthitis 06/16/2018 Cholecystitis 06/16/2018 Elevated blood-pressure read ing without diagnosis of hypertension 06/16/2018 Exacerbation of asthma ([facility]) 06/16/2018 Giardiasis 06/16/2018 Herpes simplex without complication 06/16/2018 HIV infection ([facility]) 06/16/2018 Hyperlipidemia 06/16/2018 Lymphadenopathy 06/16/2018 Mild persistent asthma without complication ([facility]) 06/16/2018 Seasonal allergic rhinitis 06/16/2018 Sprain of shoulder and upper arm 06/16/2018 Testicular hypofunction 06/16/2018 Tinnitus 06/16/2018 Rosacea 07/28/2016 Eczema 06/17/2016 Irritant dermatitis 06/17/2016 Arthralgia of shoulder 12/19/2013 Encounters Date Type Department Care Team Description 01/23/2025 1:00 PM CDT BH/MH Visits [address] [phone] Amari Dunham LCSW Post traumatic stress disorder (Primary Dx); Problem related to social environment, unspecified 01/23/2025 8:30 AM CDT Office Visit [address] [phone] Becky Wong, [facility] Acute gingivitis, plaque induced (Primary Dx) 01/16/2025 1:00 PM CDT BH/MH Visits [address] [phone] Amari Dunham LCSW Post traumatic stress disorder (Primary Dx); Problem related to social environment, unspecified 01/09/2025 4:00 PM CDT Office Visit [address] [phone] David Schuler MD Gonococcal urethritis (Primary Dx) 12/26/2024 1:00 PM CDT BH/MH Visits [address] [phone] Fanning, Amari, CHILD DAY CARE TEACHER Post traumatic stress disorder (Primary Dx); Problem related to social environment, unspecified 12/20/2024 1:00 PM CDT BH/MH Visits [address] [address] Fanning, Amari, CHILD DAY CARE TEACHER Post traumatic stress disorder (Primary Dx); Problem related to social environment, unspecified 12/20/2024 BH/MH TELEPHONE [address] [phone] Fanning, Amari, CHILD DAY CARE TEACHER Post traumatic stress disorder (Primary Dx); Problem related to social environment, unspecified 12/12/2024 BH/MH TELEPHONE [address] [address] Fanning, Amari, CHILD DAY CARE TEACHER Post traumatic stress disorder (Primary Dx); Problem related to social environment, unspecified 12/05/2024 3:00 PM CDT BH/MH Visits [address] [phone] Fanning, Amrai, CHILD DAY CARE TEACHER Post traumatic stress disorder (Primary Dx); Problem related to social environment, unspecified 11/28/2024 2:00 PM CDT BH/MH Visits [address] [address] Fanning, Amari, CHILD DAY CARE TEACHER Post traumatic stress disorder (Primary Dx); Problem related to social environment, unspecified 11/15/2024 1:00 PM CDT BH/MH Visits [address] [address] Fanning, Amari, CHILD DAY CARE TEACHER Suicidal ideation (Primary Dx); Problem related to social environment, unspecified; Post traumatic stress disorder 11/02/2024 10:00 AM ASP NET C DEVELOPER BH/MH Visits [address] [address] Fanning, Amari, CHILD DAY CARE TEACHER Suicidal ideation (Primary Dx); Problem related to social environment, unspecified; Post traumatic stress disorder from Last 3 Months Immunizations Immunization Administration Dates Next Due Flu, Preservative Free 06/15/2018 INFLUENZA, SEASONAL, INJECTABLE 07/28/2022,06/25,05/26/2020 INFLUENZA, UNSPECIFIED 07/17/2021,05/20/2020, MENINGOCOCCAL MCV4P (MENACTRA) 05/12/2017,2016 Moderna COVID-19 Vaccine, re d cap blue label, 12+ Primary Series 11/29/2020,11/01/2020 PFIZER COVID VACCINE, PURPLE CAP, 12+ 07/10/2021 Pfizer-BioNTech COVID-19 Vac cine Bivalent, (MENDOZA PFIZER-BIONTECH COVID-19 VACCINE BIVALENT, (MENDOZA CAP 07/28/2022 Smallpox Mpox (JYNNEOS) Vaccine 03/29/2023,02/27 ZOSTER VACCINE, RECOMBINANT (SHINGRIX) ,10/15/2021 Social History Tobacco Use Types Packs/Day Years Used Date Smoking Tobacco: Never Smokeless Tobacco: Never Tobacco Cessation:Counseling Given: Not Answered Social Connections Answer Date Recorded Connectedness 0 [...] Orientation [place] 01/20/2024 12 :46 PM PDT Last Filed Vital Signs Vital Sign Reading Time Taken Comments Blood Pressure 149/85 01/23/2025 8:53 AM CDT Pulse 79 01/23/2025 8:53 AM CDT Temperature 36.7 C (98 F) 01/23/2025 8:53 AM CDT Respiratory Rate - - Oxygen Saturation 98% 01/09/2025 4:03 PM CDT Inhaled Oxygen Concentration - - Weight 75.8 kg (167 lb) 01/09/2025 4:03 PM CDT Height 177.8 cm (5' 10) 01/09/2025 4:03 PM CDT Body Mass Index 23.96 01/09/2025 4:03 PM CDT Plan of Treatment Upcoming Encounters Date Type Department Care Team (Late st Contact Info) Description 01/30/2025 1:00 PM CDT BH/MH Visits [address] [phone] Amari Dunham [address] [address] 02/06/2025 2:00 PM CDT BH/MH Visits [address] [phone] Amari Dunham [address] [address] 02/13/2025 2:00 PM CDT BH/MH Visits [address] [phone] Amari Dunham [address] [address] 02/20/2025 2:30 PM CDT BH/MH Visits [address] [phone] Amari Dunham [address] [address] 02/27/2025 1:00 PM CDT BH/MH Visits [address] [phone] Amari Dunham, CHILD DAY CARE TEACHER [address] [place] [address] 07/25/2025 8:30 AM ASP NET C DEVELOPER Office Visit [address] [phone] Becky Wong, [address] [address] Health Maintenance Due Date Last Done Comments Hepatitis B Screening 1965 Hepatitis C Screening 1965 Lipid Screening 1965 STI Counseling 1965 Imm-MMR (1 of 2 - Risk 2-dose series) 1983 Imm-DTaP/Tdap/Td (1 - Tdap) 1984 Imm-Hepatitis A (1 of 2 - Risk 2-dose series) 1984 Imm-Hepatitis B (1 of 3 - 19+ 3-dose series) 1984 Imm-Pneumococcal (1 of 2 - PCV) 1984 CT Colonography 2010 Colonoscopy 2010 Colorectal Cancer Screening 2010 FIT/gFOBT 2010 Fecal DNA 2010 Flexible Sigmoidoscopy 2010 Imm-Meningococcal (2 - Risk 2-dose series) 07/07/2017 05/12/2017, 04/14/2017 Alcohol and Drug Screen 09/05/2024 Depression Monitoring 04/25/2025 01/23/2025 , 12/09/2024, 11/02/2024 Diabetes Screening 07/11/2025 07/11/2024, 07/11/2024 Dental Prophy 07/28/2025 01/23/2025, 07/07, 01/23/2024 Anxiety Screening 01/23/2026 01/23/2025 Hypertension Screening (#1) 01/23/2026 Tobacco Screening 01/23/2026 01/23/2025 Dental BW 01/25/2026 01/23/2025, 01/20/2024 Dental Examination 01/25/2026 01/23/2025, 1 09/24/2023, 01/20/2024 Dental Perio Charting 01/25/2026 01/23/2025 , 07/25/2024, 01/20/2024 Dental FMX/Pano 01/21/2029 01/20/2024, 01/20/2024 Imm-Zoster, Recombinant Completed 11/26/2022, 10/15 Imm-Mpox (formerly Monkeypox) Completed 03/29/2023, 02/27/2023 [id number] Completed 06/28/2024, 07/07, 07/10/2021, Additional history exists Imm-Influenza Completed 06/28/2024, 07/07, 07/17/2021, Additional history exists Imm-HIB Aged Out No longer eligi ble based on patient's age to complete this topic Procedures Procedure Name Priority Date/Time Associated Diagnosis Comments PHASE I TREATMENT COMPLETED Routine 01/23/2025 8:30 AM CDT Acute gingivitis, plaque induced Full PERIO CHARTING Routine 01/23/2025 8 :30 AM CDT Acute gingivitis, plaque induced Full ORAL HYGIENE INSTRUCTIONS Routine 01/23/2025 8:30 AM CDT Acute gingivitis, plaque induced Full TOPICAL APPLICATION OF FLUORIDE VARNISH Routine 01/23/2025 8:30 AM CDT Acute gingivitis, plaque induced MEDICAL HISTORY UPDATE Routine 8:30 AM CDT Acute gingivitis, plaque induced Full BITEWINGS - FOUR RADIOGRAPHIC IMAGES Routine 01/23/2025 8:30 AM CDT Acute gingivitis, plaque induced Full PERIODIC ORAL EVALUATION ESTABLISHED PATIENT Routine 01/23/2025 8:30 AM CDT Acute gingivitis, plaque induced Full PROPHYLAXIS - ADULT Routine 025 8:30 AM CDT Acute gingivitis, plaque induced [id number] NUTRITIONAL COUNSELING FOR THE CONTROL OF DENTAL DISEASE.A Routine 01/23/2025 8:30 AM CDT Acute gingivitis, plaque induced PANORAMIC RADIOGRAPHIC IMAGE Routine 01/20/2024 2:30 PM CDT Defective dental jewish Encounter for dental examination from Last 3 Months or Most Recently Relevant to Health Maintenance Insurance [employer] [facility] Care Teams Conveyor Feeder Relationship Specialty Start Date End Date Provider, Outside N/A N/A PCP - General Specialist - Other Service Providers 01/19/24
[2025-01-29 10:30] VITALS: BP 184/100; PULSE 90; RESP 20; O2SAT 98
[2025-01-29 11:30] VITALS: BP 149/97; PULSE 88; RESP 18; O2SAT 98
[2025-01-29 12:36] VITALS: BP 173/99; PULSE 90; RESP 20; O2SAT 99
== END 2025-01-29 12:42 ==
PROVIDERS: Emergency Provider Physician Assistant
DX: S16.1XXA Strain of muscle, fascia and tendon at neck level, initial encounter (principal); S05.02XA Injury of conjunctiva and corneal abrasion without foreign body, left eye, initial encounter; Z98.49 Cataract extraction status, unspecified eye; M47.812 Spondylosis without myelopathy or radiculopathy, cervical region; X58.XXXA Exposure to other specified factors, initial encounter; V47.5XXA Car driver injured in collision with fixed or stationary object in traffic accident, initial encounter
CPT/HCPCS: 70450; 71250; 72125; 73030; 73630; 74176; 99284; A9270